=== PATIENT | male | born 1935 | race Caucasian/White ===

== ENCOUNTER → 2017-01-08 | Outpatient (REF) | payer MEDICARE | LOC: M SFHCADAM 08:48 | PROVIDERS: ATTEND Family Medicine | DX: E11.9 Type 2 diabetes mellitus without complications (principal) ==

== ENCOUNTER → 2017-02-22 | Outpatient (REF) | payer MEDICARE ==
[2017-02-22 14:03] LABS: ALBUMIN 3.9 GM/DL (3.2-5.2); ALBUMIN/GLOBULIN RATIO 1.08 (1.00-1.93); ALKALINE PHOSPHATASE 57 U/L (45-117); ALT/SGPT 20 U/L (12-78); ANION GAP 5 MEQ/L (8-16); AST/SGOT 16 U/L (15-37); BILIRUBIN,TOTAL 0.6 MG/DL (0.2-1.0); BLOOD UREA NITROGEN 23 MG/DL (7-18); CALCIUM LEVEL 10.3 MG/DL (8.8-10.2); CARBON DIOXIDE LEVEL 29 MEQ/L (21-32); CHLORIDE LEVEL 106 MEQ/L (98-107); CREATININE FOR GFR 1.06 MG/DL (0.70-1.30); GLOMERULAR FILTRATION RATE > 60.0 (>42); GLUCOSE, FASTING 200 MG/DL (83-110); SODIUM LEVEL 140 MEQ/L (136-145); TOTAL PROTEIN 7.5 GM/DL (6.4-8.2)
== END ==
LOC: M SFHCADAM 09:04
PROVIDERS: ATTEND Family Medicine
DX: E11.9 Type 2 diabetes mellitus without complications (principal); Z51.81 Encounter for therapeutic drug level monitoring; Z79.01 Long term (current) use of anticoagulants

== ENCOUNTER → 2017-04-15 | Outpatient (REF) | payer OTHER | LOC: M SFHCADAM 11:55 | PROVIDERS: ATTEND Family Medicine | DX: E11.9 Type 2 diabetes mellitus without complications (principal) | CPT/HCPCS: 83036; 85610; G0463 ==

== ENCOUNTER → 2017-09-03 | Outpatient (REF) | payer OTHER | LOC: M SFHCADAM 08:29 | PROVIDERS: ATTEND Family Medicine | DX: E11.9 Type 2 diabetes mellitus without complications (principal) | CPT/HCPCS: 82043; G0463 ==

== ENCOUNTER → 2017-12-14 | Outpatient (REF) | payer OTHER ==
[2017-12-14 20:19] LABS: ESTIMATED AVERAGE GLUCOSE 154 MG/DL (60-110)
== END ==
LOC: M SFHCADAM 19:04
DX: E11.9 Type 2 diabetes mellitus without complications (principal)
CPT/HCPCS: 83036

== ENCOUNTER → 2018-03-03 | Outpatient (REF) | payer OTHER ==
[2018-03-03 13:34] LABS: CREATININE, URINE 74.7 MG/DL; MALB URINE SIEMENS 50.8 MG/L
== END ==
LOC: M SFHCADAM 12:14
DX: E11.9 Type 2 diabetes mellitus without complications (principal); Z79.01 Long term (current) use of anticoagulants
CPT/HCPCS: 82043

== ENCOUNTER → 2018-05-25 | Outpatient (REF) | payer OTHER ==
[2018-05-25 12:35] LABS: BASO # 0.1 10^3/uL (0.0-0.2); EOS # 0.1 10^3/uL (0.0-0.50); EOS % 1.7 % (0.0-3.0); HEMATOCRIT 45.3 % (42.0-52.0); HEMOGLOBIN 15.1 g/dl (13.5-17.5); IMMATURE GRANULOCYTE % 1.3 % (0-3.0); LYMPH # 1.9 10^3/uL (1.5-4.5); LYMPH % 25.9 % (24.0-44.0); MEAN CORPUSCULAR HEMOGLOBIN 33.2 pg (27.0-33.0); MEAN CORPUSCULAR HGB CONC 33.3 g/dl (32.0-36.5); MEAN CORPUSCULAR VOLUME 99.6 fl (80.0-96.0); MONO # 0.8 10^3/uL (0.0-0.8); MONO % 11.4 % (0.0-5.0); NEUTROPHILS # 4.2 10^3/uL (1.8-7.7); NEUTROPHILS % 58.7 % (36.0-66.0); PLATELET COUNT, AUTOMATED 264 10^3/uL (150-450); RED BLOOD COUNT 4.55 10^6/uL (4.30-6.10); RED CELL DISTRIBUTION WIDTH 13.9 % (11.5-14.5); WHITE BLOOD COUNT 7.1 10^3/uL (4.0-10.0)
== END ==
LOC: M SFHCADAM 08:54
DX: T14.8XXA Other injury of unspecified body region, initial encounter (principal); X58.XXXA Exposure to other specified factors, initial encounter; Y92.9 Unspecified place or not applicable
CPT/HCPCS: 85025

== ENCOUNTER → 2018-08-12 | Outpatient (REF) | payer OTHER ==
[2018-08-12 14:00] LABS: ESTIMATED AVERAGE GLUCOSE 189 MG/DL (60-110); HEMOGLOBIN A1c 8.2 %
== END ==
LOC: M SFHCADAM 09:27
DX: E11.9 Type 2 diabetes mellitus without complications (principal); Z79.01 Long term (current) use of anticoagulants
CPT/HCPCS: 83036

== ENCOUNTER → 2018-10-19 | Outpatient (CLI) | payer OTHER | LOC: M ADAMS 15:13 | DX: E11.9 Type 2 diabetes mellitus without complications (principal) ==

== ENCOUNTER → 2018-10-19 | Outpatient (REF) | payer OTHER ==
[~2018-10-19] MED LIST: AMLO5TAB4; JANT3TAB; JANT5TAB; JANU100T; LEVE1INJ5; LISI40TAB; METF10004; RANI-280; SIMV20TA2
[2018-10-19 20:45] LABS: MAU/CREAT RATIO 97.4 MCG/MG (0.0-30.0)
== END ==
LOC: M SFHCADAM 19:23
PROVIDERS: ATTEND Family Medicine
DX: E11.9 Type 2 diabetes mellitus without complications (principal); Z79.01 Long term (current) use of anticoagulants
CPT/HCPCS: 82043; 85610; G0463

== ENCOUNTER 2018-11-03 10:35 | Emergency (ER) | payer OTHER ==
[~2018-11-03] VITALS: Ht 182.9 cm; Wt 90.5 kg
[2018-11-03] MEDS ORDERED: LEVE1INJ5 (11:16)
[2018-11-03] MEDS ORDERED: AMLO5TAB4 (11:16)
[2018-11-03] MEDS ORDERED: JANU100T (11:16)
[2018-11-03] MEDS ORDERED: LISI40TAB (11:16)
[2018-11-03] MEDS ORDERED: JANT5TAB (11:16)
[2018-11-03] MEDS ORDERED: RANI-280 (11:16)
[2018-11-03] MEDS ORDERED: JANT3TAB (11:16)
[2018-11-03] MEDS ORDERED: SIMV20TA2 (11:16)
[2018-11-03] MEDS ORDERED: METF10004 (11:16)
--- NOTE | 2018-11-03 11:40 | REP ---
Clinical: Right hip trauma. Pain. Technique: Neutral and frog lateral views of the right hip. Findings: Generalized age-related changes are appreciated including joint space narrowing. No acute fracture or dislocation. Evidence for peripheral vascular disease. Impression: Generalized age-related changes. No acute fracture or dislocation identified. Electronically Signed by Trenton Skelton MD 11/03/2018 11:32 A
--- NOTE | 2018-11-03 11:54 | REP ---
RIGHT RIB SERIES: Five views including PA chest. HISTORY: Trauma. Pain. COMPARISON STUDY: November 13, 2014. FINDINGS: PA chest radiograph shows no evidence of pneumothorax or hydrothorax. The aorta is tortuous. This is more pronounced than it was in 2015 but there is no evidence of traumatic mediastinal widening. Heart is not enlarged. Lung stovall are clear. Multiple views of the right ribcage show intact right ribs without visible fracture or bony destructive lesion. 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 IMPRESSION: Negative right rib series. No fracture seen. Electronically Signed by Agus Brennan MD 11/03/2018 12:49 P
[2018-11-03 11:59] VITALS: BP 137/82
== END 2018-11-03 12:01 | disposition home or self-care (01) ==
LOC: M ED 10:35
DX: S20.211A Contusion of right front wall of thorax, initial encounter (principal); S70.01XA Contusion of right hip, initial encounter; W01.0XXA Fall on same level from slipping, tripping and stumbling without subsequent striking against object, initial encounter; Y92.098 Other place in other non-institutional residence as the place of occurrence of the external cause; I10 Essential (primary) hypertension; E11.9 Type 2 diabetes mellitus without complications; Z79.899 Other long term (current) drug therapy; Z79.01 Long term (current) use of anticoagulants; Z79.4 Long term (current) use of insulin

== ENCOUNTER → 2018-11-16 | Outpatient (REF) | payer OTHER ==
[~2018-11-16] MED LIST changes: -AMLO5TAB4; +AMLO5TAB6; +LISI40TA; -LISI40TAB
[2018-11-16 13:26] LABS: PHOSPHORUS LEVEL 2.8 MG/DL (2.5-4.9)
[2018-11-16 13:39] LABS: PTH INTACT 84.7 PG/ML (18.5-88.0)
== END ==
LOC: M LAB REF 12:38
PROVIDERS: ATTEND Nurse Practitioner Adult Health
DX: E21.3 Hyperparathyroidism, unspecified (principal)

== ENCOUNTER 2020-03-24 13:32 | Emergency (ER) | payer MEDICARE, OTHER ==
[~2020-03-24] VITALS: Ht 182.9 cm; Wt 90.0 kg
[~2020-03-24 13:32] MED LIST changes: -AMLO5TAB6; +AMLO5TAB6 PO; -SIMV20TA2; +SIMV20TA22
[2020-03-24] MEDS ORDERED: BOOSTRIX/ADACEL VACCINE (DIPHTH/PERTUSS/ACELL/TETANUS) 0.5ML SYR IM ONE (14:00)
[2020-03-24 14:41] LABS: INR 2.44; PARTIAL THROMBOPLASTIN TIME 28.7 SECONDS (25.0-38.4); PROTHROMBIN TIME 26.3 SECONDS (11.8-14.0)
[2020-03-24 15:30] VITALS: BP 133/75
--- NOTE | 2020-03-25 02:57 | REP ---
Clinical: Trauma. Technique: AP, lateral, bilateral oblique views of the right and left wrist. Findings: Generalized relatively symmetric age-related osteopenia and arthritic changes are appreciated along with peripheral vascular disease. No acute fracture or dislocation. Impression: Generalized osteopenia and arthritic changes. Peripheral vascular disease. No acute fracture or dislocation appreciated. Electronically Signed by Trenton Skelton MD 03/25/2020 02:48 A
--- NOTE | 2020-03-25 03:02 | REP ---
Clinical: Trauma. Technique: Axial noncontrast images from the skull base to the thoracic inlet with coronal and sagittal re-formations. Comparison: None. Findings:Age-related osteopenia and moderate/early advanced multilevel degenerative changes including mild reversal of normal lordosis, osteophytosis, endplate sclerosis/heterogeneity, disc space narrowing and mild facet arthropathy noted primarily involving C4-5 through C6-7.No acute fracture / compression injury or subluxation. Spinal canal is grossly patent. Posterior elements and spinous processes are intact. Paravertebral soft tissues are normal. Impression:Osteopenia and early advanced multilevel degenerative spondylosis.No acute fracture / compression injury or subluxation. Electronically Signed by Trenton Skelton MD 03/25/2020 02:53 A
--- NOTE | 2020-03-25 03:04 | REP ---
Clinical: Trauma. Comparison: None. Technique: Axial noncontrast images from the skull base to the vertex with coronal re-formations. Findings:Age-related atrophy and microvascular ischemic changes are appreciated. The ventricles and sulci are symmetric. [place]-white differentiation is maintained. There is no evidence for acute intracranial hemorrhage, mass/mass effect, pathology or infarction. No extra-axial fluid collection. Calvarium is intact. Opacification of the left maxillary sinus is nonspecific. Remainder of the sinuses and mastoid air cells are clear. Impression:Age related atrophy and microvascular ischemic changes.No acute intracranial hemorrhage, infarction, or mass/mass effect. No evidence for acute trauma/injury. Electronically Signed by Trenton Skelton MD 03/25/2020 02:55 A
== END 2020-03-24 15:53 | disposition home or self-care (01) ==
LOC: M ED 13:32 → EDBD 13:32 → M ED 15:53
DX: S09.90XA Unspecified injury of head, initial encounter (principal); S60.211A Contusion of right wrist, initial encounter; S60.212A Contusion of left wrist, initial encounter; S60.411A Abrasion of left index finger, initial encounter; S60.413A Abrasion of left middle finger, initial encounter; S60.415A Abrasion of left ring finger, initial encounter; S60.416A Abrasion of right little finger, initial encounter; W01.198A Fall on same level from slipping, tripping and stumbling with subsequent striking against other object, initial encounter; Y92.093 Driveway of other non-institutional residence as the place of occurrence of the external cause; I11.9 Hypertensive heart disease without heart failure; E11.9 Type 2 diabetes mellitus without complications; I48.91 Unspecified atrial fibrillation; I25.10 Atherosclerotic heart disease of native coronary artery without angina pectoris; E78.9 Disorder of lipoprotein metabolism, unspecified; K21.9 Gastro-esophageal reflux disease without esophagitis; E21.3 Hyperparathyroidism, unspecified; Z87.891 Personal history of nicotine dependence; Z79.899 Other long term (current) drug therapy; Z79.01 Long term (current) use of anticoagulants; Z79.4 Long term (current) use of insulin; Z23 Encounter for immunization

== ENCOUNTER → 2020-07-09 | Outpatient (REF) | payer MEDICARE ==
[~2020-07-09] MED LIST changes: +AMLO1TAB24 PO; -AMLO5TAB6 PO
== END ==
LOC: M LAB REF 11:15
PROVIDERS: ATTEND Nurse Practitioner Adult Health
DX: E83.52 Hypercalcemia (principal)

== ENCOUNTER → 2021-02-26 | Outpatient (CLI) | payer MEDICARE ==
[~2021-02-26] MED LIST changes: -LISI40TA; +LISI40TA4
--- NOTE | 2021-02-26 11:07 | REP ---
INDICATION: COUGH. COMPARISON: Frontal view of the chest obtained as part of a rib series 11/03/2018 TECHNIQUE: PA and lateral FINDINGS: The superior mediastinal structures are midline. The cardiac silhouette is unremarkable in size, shape, and position. The diaphragmatic surfaces of the lungs are regular, and the costophrenic angles are clear. There is thoracic aortic tortuosity status quo. The pulmonary stovall are clear. The imaged osseous structures are intact. IMPRESSION: There is no acute cardiopulmonary disease. <Electronically signed by Osmel Mathias > 02/26/21 [id number]
[2021-02-26 18:27] LABS: PTH INTACT 75.1 PG/ML (18.5-88.0)
== END ==
LOC: M ADAMS 10:37
PROVIDERS: ATTEND Nurse Practitioner Adult Health
DX: R05 Cough (principal)

== ENCOUNTER 2021-11-27 09:10 | Emergency (ER) | payer MEDICARE ==
[~2021-11-27] VITALS: Ht 182.9 cm; Wt 86.4 kg
[2021-11-27] MEDS ORDERED: ACETAMINOPHEN 325 MG TAB PO ONE (09:35)
[2021-11-27] MEDS ORDERED: HYDR12.55 PO (11:06)
[2021-11-27] MEDS ORDERED: TERA1CAP3 PO (11:06)
[2021-11-27] MEDS ORDERED: FAMO20TA5 PO (11:06)
[2021-11-27 11:48] LABS: INR 3.7; PARTIAL THROMBOPLASTIN TIME 43.6 SECONDS (25.9-37.0); PROTHROMBIN TIME 36.9 SECONDS (12.7-14.5)
[2021-11-27 12:22] VITALS: BP 139/94
== END 2021-11-27 12:38 | disposition home or self-care (01) ==
LOC: EDBD 09:10 → M ED 09:10
DX: S42.402A Unspecified fracture of lower end of left humerus, initial encounter for closed fracture (principal); W00.0XXA Fall on same level due to ice and snow, initial encounter; Y92.009 Unspecified place in unspecified non-institutional (private) residence as the place of occurrence of the external cause; Y93.9 Activity, unspecified; Y99.9 Unspecified external cause status; I48.91 Unspecified atrial fibrillation; I10 Essential (primary) hypertension; E11.9 Type 2 diabetes mellitus without complications; Z79.4 Long term (current) use of insulin; Z79.01 Long term (current) use of anticoagulants; Z79.899 Other long term (current) drug therapy

== ENCOUNTER → 2021-11-28 | Outpatient (CLI) | payer MEDICARE ==
[~2021-11-28] MED LIST changes: +FAMO20TA5 PO; +HYDR12.55 PO; +TERA1CAP3 PO
== END ==
LOC: M SOG 13:34
PROVIDERS: ATTEND Orthopaedic Surgery
DX: S42.492A Other displaced fracture of lower end of left humerus, initial encounter for closed fracture (principal); M25.552 Pain in left hip

== ENCOUNTER → 2021-12-12 | Outpatient (CLI) | payer MEDICARE | LOC: M SOG 10:04 | PROVIDERS: ATTEND Orthopaedic Surgery | DX: S42.495A Other nondisplaced fracture of lower end of left humerus, initial encounter for closed fracture (principal); M16.12 Unilateral primary osteoarthritis, left hip; W00.0XXA Fall on same level due to ice and snow, initial encounter; Y92.9 Unspecified place or not applicable; M16.0 Bilateral primary osteoarthritis of hip ==

== ENCOUNTER → 2021-12-26 | Outpatient (CLI) | payer MEDICARE | LOC: M SOG 09:24 | PROVIDERS: ATTEND Orthopaedic Surgery | DX: M25.422 Effusion, left elbow (principal) ==

== ENCOUNTER → 2022-01-13 | Outpatient (REF) | payer MEDICARE | LOC: M LAB REF 16:14 | PROVIDERS: ATTEND Nurse Practitioner Adult Health | DX: E83.52 Hypercalcemia (principal) ==

== ENCOUNTER → 2022-08-20 | Outpatient (REF) | payer MEDICARE | LOC: M LAB REF 16:42 | PROVIDERS: ATTEND Nurse Practitioner Adult Health | DX: Z51.81 Encounter for therapeutic drug level monitoring (principal) ==

== ENCOUNTER → 2022-09-09 | Outpatient (CLI) | payer MEDICARE | LOC: M SOG 07:52 | PROVIDERS: ATTEND Orthopaedic Surgery | DX: M16.12 Unilateral primary osteoarthritis, left hip (principal); M54.50 Low back pain, unspecified ==

== ENCOUNTER 2023-10-28 14:32 | Inpatient (IN) | payer MEDICARE ==
[~2023-10-28] VITALS: Ht 182.9 cm; Wt 81.6 kg
[~2023-10-28 14:32] MED LIST changes: +INSU100I6; -JANT3TAB; +JANT3TAB PO; -JANT5TAB; +JANT5TAB PO; -LEVE1INJ5; -LISI40TA4; +LISI40TA4 PO; -METF10004; +METF10004 PO; -SIMV20TA22; +SIMV20TA22 PO
[2023-10-28 16:09] LABS: HEMATOCRIT 50.7 % (42.0-52.0); HEMOGLOBIN 16.4 g/dl (13.5-17.5); MEAN CORPUSCULAR HGB CONC 32.3 g/dl (32.0-36.5); PLATELET COUNT, AUTOMATED 358 10^3/uL (150-450); RED BLOOD COUNT 4.97 10^6/uL (4.30-6.10); WHITE BLOOD COUNT 14.5 10^3/uL (4.0-10.0)
[2023-10-28 16:15] LABS: ERYTHROCYTE SEDIMENTATION RATE 100 mm/hr (0-20)
[2023-10-28 16:20] LABS: INR 2.41; PROTHROMBIN TIME 25.4 SECONDS (12.5-14.5)
[2023-10-28 16:21] LABS: PARTIAL THROMBOPLASTIN TIME 35.3 SECONDS (24.8-34.2)
[2023-10-28 16:25] LABS: BASOPHILS 2 % (0-1); LYMPHOCYTES 11 % (16-44); MONOCYTES 11 % (0-5); NEUTROPHILS 75 % (28-66); PLATELET ESTIMATE NORMAL (NORMAL)
[2023-10-28] MEDS ORDERED: NS 1,000 ML IV ONE (16:35)
[2023-10-28] MEDS ORDERED: VANCOMYCIN HCL 1,750 MG in NS 250 ML IV ONE (17:05)
[2023-10-28] MEDS ORDERED: INSULIN LISPRO (NovoLOG) PER UNIT SC SCH ×2 (17:30→21:00)
[2023-10-28] MEDS ORDERED: SODIUM CHLORIDE 0.9% 1000ML IV STA (17:54)
[2023-10-28] MEDS ORDERED: GLUCOSE 4GM CHEW TABLET PO PRN ×2 (18:00→23:45)
[2023-10-28] MEDS ORDERED: VANCOMYCIN HCL 1,000 MG, VIAL MATE ADAPTER 1 EACH in D5W 250 ML IV ONE (18:00)
[2023-10-28] MEDS ORDERED: DEXTROSE 50% 50ML SYRINGE IV PRN ×2 (18:00→23:45)
[2023-10-28] MEDS ORDERED: GLUCAGON INJ 1MG VIAL SC PRN ×2 (18:00→23:45)
[2023-10-28] MEDS ORDERED: ISOVUE-370 76% 100ML VIAL As Ordered ONE (18:17)
[2023-10-28 18:53] LABS: PROCALCITONIN <0.04 ng/ml
[2023-10-28] MEDS ORDERED: VANCOMYCIN HCL 750 MG, VIAL MATE ADAPTER 1 EACH in D5W 250 ML IV ONE (19:00)
[2023-10-28] MEDS ORDERED: MED REC IN PROGRESS XX SCH (19:05)
[2023-10-28 19:42] LABS: RSV AMPLIFICATION NEGATIVE (NEGATIVE)
[2023-10-28 20:30] VITALS: BP 163/89; TEMP 98.1; O2SAT 95
[2023-10-28 20:57] LABS: C REACTIVE PROTEIN QUANTITATIV 4.9 MG/DL (<1.0)
[2023-10-28] MEDS ORDERED: PIPERACILLIN/TAZOBACTAM SOD 4.5 GM in D5W MINI-BAG PLUS 50 ML IV SCH (22:00)
[2023-10-28] MEDS ORDERED: ONDANSETRON 4MG 2ML VIAL IV PRN (23:45)
[2023-10-28] MEDS ORDERED: HYDROMORPHONE HCL 0.5 MG/ 0.5 ML SYRINGE IV PRN ×2 (23:45)
[2023-10-28] MEDS ORDERED: VANCOMYCIN HCL 1,000 MG, VIAL MATE ADAPTER 1 EACH in NS 250 ML IV SCH (23:45)
[2023-10-29 00:06] LABS: MAGNESIUM LEVEL 1.9 MG/DL (1.8-2.4)
[2023-10-29] MEDS: NS 1,000 ML IV SCH ×2 (00:12→18:23)
[2023-10-29 06:00] VITALS: BP 131/82; TEMP 98.6; O2SAT 90
[2023-10-29 06:39] LABS: INR 2.37
[2023-10-29 06:45] LABS: ALBUMIN 2.6 G/DL (3.2-5.2); ALKALINE PHOSPHATASE 69 U/L (46-116); ALT/SGPT < 9 U/L (7.0-40); AST/SGOT 14 U/L (<34); BILIRUBIN,TOTAL 1.2 MG/DL (0.3-1.2); BLOOD UREA NITROGEN 13 MG/DL (9-23); CALCIUM LEVEL 9.8 MG/DL (8.3-10.6); CARBON DIOXIDE LEVEL 21 MMOL/L (20-31); CREATININE FOR GFR 0.69 MG/DL (0.70-1.30); GLOMERULAR FILTRATION RATE > 60.0 (>35); GLUCOSE, FASTING 124 MG/DL (74-106); MAGNESIUM LEVEL 1.8 MG/DL (1.8-2.4); PHOSPHORUS LEVEL 2.4 MG/DL (2.4-5.1); TOTAL PROTEIN 6.2 G/DL (5.7-8.2)
[2023-10-29] MEDS: INSULIN LISPRO (NovoLOG) PER UNIT SC SCH ×4 (07:30→21:00)
[2023-10-29 08:36] LABS: CHLORIDE LEVEL 105 MMOL/L (98-107); SODIUM LEVEL 138 MMOL/L (136-145)
[2023-10-29] MEDS: VANCOMYCIN HCL 750 MG, VIAL MATE ADAPTER 1 EACH in D5W 250 ML IV SCH ×2 (09:08→10:27)
[2023-10-29] MEDS ORDERED: VANCOMYCIN HCL 500 MG in D5W MINI-BAG PLUS 100 ML IV SCH (10:00)
[2023-10-29] MEDS ORDERED: INSU100I48 SQ (10:10)
[2023-10-29] MEDS ORDERED: FARX1TAB3 PO (10:10)
[2023-10-29] MEDS ORDERED: AMLO1TAB25 PO (10:10)
[2023-10-29] MEDS ORDERED: ATOR1TAB21 PO (10:10)
[2023-10-29] MEDS ORDERED: TRAD5TAB PO (10:10)
[2023-10-29] MEDS ORDERED: METO1TAB32 PO (10:10)
[2023-10-29] MEDS ORDERED: HOME MED LIST COMPLETE! XX SCH (10:15)
[2023-10-29] MEDS: DAPAGLIFLOZIN PROPANEDIOL 10MG TABLET (FARXIGA) PO SCH (13:10)
[2023-10-29] MEDS: METOPROLOL SUCC *XL* 25MG TAB (TopROL *XL*) PO SCH (13:11)
[2023-10-29 14:00] VITALS: BP 127/72; TEMP 98.1; O2SAT 95
[2023-10-29] MEDS: HYDROCHLOROthiazide 6.25MG PER 1/4TAB PO SCH (18:15)
[2023-10-29] MEDS: WARFARIN SOD 3MG TAB PO SCH (18:15)
[2023-10-29 20:15] VITALS: BP 133/80; TEMP 98.6; O2SAT 90
[2023-10-29] MEDS: ATORVASTATIN 20 MG TAB PO SCH (21:00)
[2023-10-29] MEDS: FAMOTIDINE 20 MG TAB PO SCH (21:00)
[2023-10-29] MEDS: TERAZOSIN 1 MG CAP PO SCH ×2 (21:00→22:30)
[2023-10-30 06:10] VITALS: BP 142/88; TEMP 97.9; O2SAT 94
[2023-10-30 06:32] LABS: INR 1.93; PROTHROMBIN TIME 21.4 SECONDS (12.5-14.5)
[2023-10-30 09:00] LABS: BASO # 0.1 10^3/uL (0.0-0.2); BASO % 0.5 % (0.0-1.0); EOS % 0.2 % (0.0-3.0); HEMATOCRIT 44.9 % (42.0-52.0); HEMOGLOBIN 14.8 g/dl (13.5-17.5); MEAN CORPUSCULAR HEMOGLOBIN 33.3 pg (27.0-33.0); MEAN CORPUSCULAR VOLUME 100.9 fl (80.0-96.0); MONO # 1.5 10^3/uL (0.0-0.8); MONO % 11.4 % (2.0-8.0); NEUTROPHILS # 10.3 10^3/uL (1.5-8.5); NEUTROPHILS % 79.2 % (36.0-66.0); PLATELET COUNT, AUTOMATED 335 10^3/uL (150-450); RED BLOOD COUNT 4.45 10^6/uL (4.30-6.10); WHITE BLOOD COUNT 12.9 10^3/uL (4.0-10.0)
[2023-10-30 09:17] LABS: ERYTHROCYTE SEDIMENTATION RATE 67 mm/hr (0-20)
[2023-10-30 09:23] LABS: VANCOMYCIN LEVEL TROUGH 5.9 UG/ML (10.0-20.0)
[2023-10-30 09:24] LABS: BLOOD UREA NITROGEN 17 MG/DL (9-23); CALCIUM LEVEL 9.5 MG/DL (8.3-10.6); CARBON DIOXIDE LEVEL 24 MMOL/L (20-31); CHLORIDE LEVEL 104 MMOL/L (98-107); CREATININE FOR GFR 0.83 MG/DL (0.70-1.30); GLOMERULAR FILTRATION RATE > 60.0 (>35); GLUCOSE, FASTING 347 MG/DL (74-106); MAGNESIUM LEVEL 1.9 MG/DL (1.8-2.4); SODIUM LEVEL 135 MMOL/L (136-145)
[2023-10-30] MEDS: DAPAGLIFLOZIN PROPANEDIOL 10MG TABLET (FARXIGA) PO SCH (09:29)
[2023-10-30] MEDS: METOPROLOL SUCC *XL* 25MG TAB (TopROL *XL*) PO SCH (09:32)
[2023-10-30] MEDS: HYDROCHLOROthiazide 6.25MG PER 1/4TAB PO SCH (09:32)
[2023-10-30] MEDS: INSULIN LISPRO (NovoLOG) PER UNIT SC SCH ×4 (09:33→21:00)
[2023-10-30] MEDS: VANCOMYCIN HCL 750 MG, VIAL MATE ADAPTER 1 EACH in D5W 250 ML IV SCH ×2 (09:56→10:56)
[2023-10-30] MEDS ORDERED: ZYVO1TAB PO (10:14)
[2023-10-30] MEDS ORDERED: VANCOMYCIN HCL 500 MG in D5W MINI-BAG PLUS 100 ML IV ONE (14:00)
[2023-10-30 15:43] VITALS: TEMP 98.1
[2023-10-30] MEDS: cefTRIAXone SOD 2 GM in D5W MINI-BAG PLUS 50 ML IV SCH (17:19)
[2023-10-30] MEDS: WARFARIN SOD 3MG TAB PO SCH (17:19)
[2023-10-30] MEDS: FAMOTIDINE 20 MG TAB PO SCH (22:30)
[2023-10-30] MEDS: ATORVASTATIN 20 MG TAB PO SCH (22:30)
[2023-10-31 05:44] VITALS: BP 139/82; TEMP 97.9; O2SAT 96
[2023-10-31] MEDS: INSULIN LISPRO (NovoLOG) PER UNIT SC SCH ×4 (08:18→21:27)
[2023-10-31] MEDS: DAPAGLIFLOZIN PROPANEDIOL 10MG TABLET (FARXIGA) PO SCH (08:19)
[2023-10-31] MEDS: HYDROCHLOROthiazide 6.25MG PER 1/4TAB PO SCH (08:23)
[2023-10-31] MEDS: METOPROLOL SUCC *XL* 25MG TAB (TopROL *XL*) PO SCH (08:25)
[2023-10-31 08:53] LABS: BASO # 0.1 10^3/uL (0.0-0.2); BASO % 0.9 % (0.0-1.0); EOS # 0.1 10^3/uL (0.0-0.5); EOS % 0.5 % (0.0-3.0); HEMATOCRIT 47.2 % (42.0-52.0); HEMOGLOBIN 15.6 g/dl (13.5-17.5); LYMPH # 1.5 10^3/uL (1.5-5.0); LYMPH % 12.2 % (24.0-44.0); MEAN CORPUSCULAR HEMOGLOBIN 33.1 pg (27.0-33.0); MEAN CORPUSCULAR HGB CONC 33.1 g/dl (32.0-36.5); MEAN CORPUSCULAR VOLUME 100.2 fl (80.0-96.0); MONO # 1.5 10^3/uL (0.0-0.8); MONO % 12.5 % (2.0-8.0); NEUTROPHILS # 8.7 10^3/uL (1.5-8.5); NEUTROPHILS % 73.1 % (36.0-66.0); PLATELET COUNT, AUTOMATED 315 10^3/uL (150-450); RED BLOOD COUNT 4.71 10^6/uL (4.30-6.10); WHITE BLOOD COUNT 11.9 10^3/uL (4.0-10.0)
[2023-10-31 08:56] LABS: VANCOMYCIN LEVEL TROUGH 8.3 UG/ML (10.0-20.0)
[2023-10-31 08:57] LABS: BLOOD UREA NITROGEN 16 MG/DL (9-23); CALCIUM LEVEL 10.2 MG/DL (8.3-10.6); CARBON DIOXIDE LEVEL 21 MMOL/L (20-31); CHLORIDE LEVEL 106 MMOL/L (98-107); CREATININE FOR GFR 0.76 MG/DL (0.70-1.30); GLOMERULAR FILTRATION RATE > 60.0 (>35); GLUCOSE, FASTING 243 MG/DL (74-106); POTASSIUM SERUM 4.1 MMOL/L (3.5-5.1); SODIUM LEVEL 138 MMOL/L (136-145)
[2023-10-31 09:12] LABS: INR 1.94; PROTHROMBIN TIME 21.5 SECONDS (12.5-14.5)
[2023-10-31] MEDS: VANCOMYCIN HCL 750 MG, VIAL MATE ADAPTER 1 EACH in D5W 250 ML IV SCH (10:03)
[2023-10-31] MEDS: cefTRIAXone SOD 2 GM in D5W MINI-BAG PLUS 50 ML IV SCH (16:19)
[2023-10-31] MEDS: WARFARIN SOD 3MG TAB PO SCH (17:06)
[2023-10-31] MEDS: TERAZOSIN 1 MG CAP PO SCH (20:15)
[2023-10-31] MEDS: ATORVASTATIN 20 MG TAB PO SCH (20:15)
[2023-10-31] MEDS: VANCOMYCIN HCL 1,000 MG, VIAL MATE ADAPTER 1 EACH in D5W 250 ML IV SCH (20:15)
[2023-10-31] MEDS: FAMOTIDINE 20 MG TAB PO SCH (20:15)
[2023-10-31 21:00] VITALS: BP 125/86; TEMP 98.8; O2SAT 97
[2023-11-01 05:38] VITALS: BP 124/86; TEMP 97.9; O2SAT 98
[2023-11-01 07:36] LABS: BASO # 0.1 10^3/uL (0.0-0.2); BASO % 1.1 % (0.0-1.0); EOS # 0.1 10^3/uL (0.0-0.5); EOS % 0.5 % (0.0-3.0); HEMOGLOBIN 15.2 g/dl (13.5-17.5); LYMPH # 1.3 10^3/uL (1.5-5.0); LYMPH % 11.3 % (24.0-44.0); MEAN CORPUSCULAR HEMOGLOBIN 32.9 pg (27.0-33.0); MEAN CORPUSCULAR VOLUME 99.6 fl (80.0-96.0); MONO # 1.4 10^3/uL (0.0-0.8); MONO % 12.8 % (2.0-8.0); NEUTROPHILS # 8.1 10^3/uL (1.5-8.5); NEUTROPHILS % 73.6 % (36.0-66.0); PLATELET COUNT, AUTOMATED 357 10^3/uL (150-450); RED BLOOD COUNT 4.62 10^6/uL (4.30-6.10)
[2023-11-01 07:46] LABS: INR 2.17; PROTHROMBIN TIME 23.4 SECONDS (12.5-14.5)
[2023-11-01 07:59] LABS: BLOOD UREA NITROGEN 14 MG/DL (9-23); CARBON DIOXIDE LEVEL 26 MMOL/L (20-31); CHLORIDE LEVEL 104 MMOL/L (98-107); CREATININE FOR GFR 0.78 MG/DL (0.70-1.30); GLOMERULAR FILTRATION RATE > 60.0 (>35); GLUCOSE, FASTING 181 MG/DL (74-106); SODIUM LEVEL 137 MMOL/L (136-145)
[2023-11-01] MEDS: DAPAGLIFLOZIN PROPANEDIOL 10MG TABLET (FARXIGA) PO SCH (08:13)
[2023-11-01] MEDS: VANCOMYCIN HCL 1,000 MG, VIAL MATE ADAPTER 1 EACH in D5W 250 ML IV SCH ×2 (08:13→20:30)
[2023-11-01] MEDS: INSULIN LISPRO (NovoLOG) PER UNIT SC SCH ×4 (08:13→20:19)
[2023-11-01] MEDS: METOPROLOL SUCC *XL* 25MG TAB (TopROL *XL*) PO SCH (08:14)
[2023-11-01] MEDS: HYDROCHLOROthiazide 6.25MG PER 1/4TAB PO SCH (08:14)
[2023-11-01] MEDS: cefTRIAXone SOD 2 GM in D5W MINI-BAG PLUS 50 ML IV SCH (16:28)
[2023-11-01] MEDS: WARFARIN SOD 3MG TAB PO SCH (17:54)
[2023-11-01] MEDS: FAMOTIDINE 20 MG TAB PO SCH (20:28)
[2023-11-01] MEDS: ATORVASTATIN 20 MG TAB PO SCH (20:29)
[2023-11-01] MEDS: TERAZOSIN 1 MG CAP PO SCH (20:30)
[2023-11-02 06:00] VITALS: BP 137/71; TEMP 97.6; O2SAT 91
[2023-11-02 07:58] LABS: BASO # 0.1 10^3/uL (0.0-0.2); BASO % 1.1 % (0.0-1.0); EOS # 0.1 10^3/uL (0.0-0.5); EOS % 0.8 % (0.0-3.0); HEMATOCRIT 45.2 % (42.0-52.0); HEMOGLOBIN 14.9 g/dl (13.5-17.5); LYMPH # 1.5 10^3/uL (1.5-5.0); LYMPH % 14.9 % (24.0-44.0); MONO # 1.4 10^3/uL (0.0-0.8); MONO % 13.3 % (2.0-8.0); NEUTROPHILS % 69.1 % (36.0-66.0); PLATELET COUNT, AUTOMATED 346 10^3/uL (150-450); RED BLOOD COUNT 4.52 10^6/uL (4.30-6.10); WHITE BLOOD COUNT 10.2 10^3/uL (4.0-10.0)
[2023-11-02 08:03] LABS: BLOOD UREA NITROGEN 14 MG/DL (9-23); CALCIUM LEVEL 9.8 MG/DL (8.3-10.6); CARBON DIOXIDE LEVEL 21 MMOL/L (20-31); CHLORIDE LEVEL 106 MMOL/L (98-107); CREATININE FOR GFR 0.74 MG/DL (0.70-1.30); GLOMERULAR FILTRATION RATE > 60.0 (>35); GLUCOSE, FASTING 191 MG/DL (74-106); SODIUM LEVEL 136 MMOL/L (136-145)
[2023-11-02 08:23] LABS: INR 2.04; PROTHROMBIN TIME 22.3 SECONDS (12.5-14.5)
[2023-11-02] MEDS: DAPAGLIFLOZIN PROPANEDIOL 10MG TABLET (FARXIGA) PO SCH (08:57)
[2023-11-02 08:58] VITALS: BP 152/87
[2023-11-02] MEDS: HYDROCHLOROthiazide 6.25MG PER 1/4TAB PO SCH (08:58)
[2023-11-02] MEDS: INSULIN LISPRO (NovoLOG) PER UNIT SC SCH ×2 (08:58→13:26)
[2023-11-02] MEDS: METOPROLOL SUCC *XL* 25MG TAB (TopROL *XL*) PO SCH (08:59)
[2023-11-02] MEDS ORDERED: VANCOMYCIN HCL 750 MG, VIAL MATE ADAPTER 1 EACH in D5W 250 ML IV SCH (09:00)
[2023-11-02] MEDS ORDERED: VANCOMYCIN HCL 500 MG in D5W MINI-BAG PLUS 100 ML IV SCH (10:00)
[2023-11-02] MEDS ORDERED: CEFD1CAP9 PO (12:58)
[2023-11-02] MEDS ORDERED: DOXY-444 PO (12:58)
[2023-11-03] MEDS ORDERED: WARFARIN SOD 5MG TAB PO SCH (17:00)
== END 2023-11-02 13:47 | disposition home health service (06) | DRG 872 ==
LOC: M ED 14:32 → UNDOADMIN 17:54 → M ED INP 17:54 → ENRESERV 20:04 → M MSPAV 20:32
PROVIDERS: ADMIT Internal Medicine; ATTEND Student in an Organized Health Care Education/Training Program
DX: A41.9 Sepsis, unspecified organism (principal); L03.116 Cellulitis of left lower limb; L97.528 Non-pressure chronic ulcer of other part of left foot with other specified severity; S92.425A Nondisplaced fracture of distal phalanx of left great toe, initial encounter for closed fracture; I48.91 Unspecified atrial fibrillation; I10 Essential (primary) hypertension; E11.51 Type 2 diabetes mellitus with diabetic peripheral angiopathy without gangrene; E78.5 Hyperlipidemia, unspecified; E11.42 Type 2 diabetes mellitus with diabetic polyneuropathy; B96.20 Unspecified Escherichia coli [E. coli] as the cause of diseases classified elsewhere; E11.621 Type 2 diabetes mellitus with foot ulcer; B95.61 Methicillin susceptible Staphylococcus aureus infection as the cause of diseases classified elsewhere; Z79.4 Long term (current) use of insulin; Z79.01 Long term (current) use of anticoagulants; Z79.899 Other long term (current) drug therapy; X58.XXXA Exposure to other specified factors, initial encounter; Y92.9 Unspecified place or not applicable; Y93.9 Activity, unspecified; Y99.8 Other external cause status

== ENCOUNTER 2023-11-09 17:48 | Inpatient (IN) | payer MEDICARE ==
[~2023-11-09] VITALS: Ht 182.9 cm; Wt 82.0 kg
[~2023-11-09 17:48] MED LIST changes: +AMLO1TAB25 PO; +ATOR1TAB21 PO; +CEFD1CAP9 PO; +DOXY-444 PO; +FARX1TAB3 PO; +INSU100I48 SQ; +METO1TAB32 PO; +TRAD5TAB PO; +ZYVO1TAB PO
[2023-11-09 19:04] LABS: BASO # 0.1 10^3/uL (0.0-0.2); BASO % 0.7 % (0.0-1.0); HEMOGLOBIN 14.5 g/dl (13.5-17.5); LYMPH # 0.8 10^3/uL (1.5-5.0); LYMPH % 10.8 % (24.0-44.0); MEAN CORPUSCULAR HEMOGLOBIN 32.9 pg (27.0-33.0); MEAN CORPUSCULAR VOLUME 99.8 fl (80.0-96.0); MONO % 27.2 % (2.0-8.0); NEUTROPHILS # 4.2 10^3/uL (1.5-8.5); NEUTROPHILS % 58.4 % (36.0-66.0); PLATELET COUNT, AUTOMATED 352 10^3/uL (150-450); RED BLOOD COUNT 4.41 10^6/uL (4.30-6.10); WHITE BLOOD COUNT 7.1 10^3/uL (4.0-10.0)
[2023-11-09 19:28] LABS: ALBUMIN 2.7 G/DL (3.2-5.2); ALKALINE PHOSPHATASE 78 U/L (46-116); ALT/SGPT 12 U/L (7.0-40); AST/SGOT 27 U/L (<34); BILIRUBIN,DIRECT 0.2 MG/DL (<0.4); BILIRUBIN,TOTAL 0.4 MG/DL (0.3-1.2); BLOOD UREA NITROGEN 28 MG/DL (9-23); CARBON DIOXIDE LEVEL 24 MMOL/L (20-31); CHLORIDE LEVEL 104 MMOL/L (98-107); CREATININE FOR GFR 0.92 MG/DL (0.70-1.30); GLOMERULAR FILTRATION RATE > 60.0 (>35); GLUCOSE, FASTING 210 MG/DL (74-106); POTASSIUM SERUM 4.4 MMOL/L (3.5-5.1); SODIUM LEVEL 134 MMOL/L (136-145); TOTAL PROTEIN 6.5 G/DL (5.7-8.2)
[2023-11-09 19:40] LABS: INR 2.21; PROCALCITONIN 0.09 ng/ml; PROTHROMBIN TIME 23.7 SECONDS (12.5-14.5)
[2023-11-09 19:50] LABS: RSV AMPLIFICATION NEGATIVE (NEGATIVE)
[2023-11-09 19:58] LABS: MONO # 1.9 10^3/uL (0.0-0.8)
[2023-11-09 20:19] LABS: VENOUS BASE EXCESS 1.8 (-2.0-2.0); VENOUS HCO3 27.3 MMOL/L (23.0-27.0); VENOUS O2 SATURATION 53.8 % (60.0-80.0); VENOUS PARTIAL PRESSURE CO2 45.8 mmHg (38.0-50.0); VENOUS PARTIAL PRESSURE O2 28.4 mmHg (30.0-50.0); VENOUS PH 7.393 UNITS (7.330-7.430); VENOUS STANDARD HCO3 24.8 MMOL/L; VENOUS TOTAL CO2 28.7 MMOL/L (24.0-28.0)
[2023-11-09] MEDS ORDERED: dexAMETHasone 20MG/5ML VIAL IV ONE (21:30)
[2023-11-09] MEDS ORDERED: CEFD1CAP9 PO (23:11)
[2023-11-09] MEDS ORDERED: DOXY-443 PO (23:12)
[2023-11-09] MEDS ORDERED: HOME MED LIST COMPLETE! XX SCH ×2 (23:25→23:30)
[2023-11-10] VITALS (14 sets, daily range): BP systolic 120–151; BP diastolic 70–100; TEMP 96.8–98.3; O2SAT 88–96
[2023-11-10] MEDS ORDERED: GLUCAGON INJ 1MG VIAL SC PRN (01:05)
[2023-11-10] MEDS ORDERED: GLUCOSE 4GM CHEW TABLET PO PRN (01:05)
[2023-11-10] MEDS ORDERED: DEXTROSE 50% 50ML SYRINGE IV PRN (01:05)
[2023-11-10] MEDS ORDERED: REMDESIVIR 200 MG in NS 250 ML IV ONE (03:00)
[2023-11-10 06:29] LABS: BASO # 0.1 10^3/uL (0.0-0.2); HEMATOCRIT 45.7 % (42.0-52.0); HEMOGLOBIN 15.2 g/dl (13.5-17.5); LYMPH # 0.7 10^3/uL (1.5-5.0); LYMPH % 13.3 % (24.0-44.0); MEAN CORPUSCULAR HEMOGLOBIN 33.6 pg (27.0-33.0); MEAN CORPUSCULAR HGB CONC 33.3 g/dl (32.0-36.5); MEAN CORPUSCULAR VOLUME 101.1 fl (80.0-96.0); MONO # 0.2 10^3/uL (0.0-0.8); MONO % 3.6 % (2.0-8.0); NEUTROPHILS # 3.9 10^3/uL (1.5-8.5); NEUTROPHILS % 77.5 % (36.0-66.0); PLATELET COUNT, AUTOMATED 329 10^3/uL (150-450); RED BLOOD COUNT 4.52 10^6/uL (4.30-6.10)
[2023-11-10 06:43] LABS: INR 1.9; PROTHROMBIN TIME 21.1 SECONDS (12.5-14.5)
[2023-11-10 06:57] LABS: ALBUMIN 2.5 G/DL (3.2-5.2); ALKALINE PHOSPHATASE 76 U/L (46-116); ALT/SGPT 11 U/L (7.0-40); AST/SGOT 25 U/L (<34); BILIRUBIN,DIRECT 0.2 MG/DL (<0.4); BILIRUBIN,TOTAL 0.5 MG/DL (0.3-1.2); BLOOD UREA NITROGEN 23 MG/DL (9-23); CALCIUM LEVEL 9.3 MG/DL (8.3-10.6); CARBON DIOXIDE LEVEL 23 MMOL/L (20-31); CHLORIDE LEVEL 104 MMOL/L (98-107); GLOMERULAR FILTRATION RATE > 60.0 (>35); GLUCOSE, FASTING 193 MG/DL (74-106); POTASSIUM SERUM 4.5 MMOL/L (3.5-5.1); SODIUM LEVEL 136 MMOL/L (136-145); TOTAL PROTEIN 6.4 G/DL (5.7-8.2)
[2023-11-10] MEDS: METOPROLOL SUCC *XL* 25MG TAB (TopROL *XL*) PO SCH (08:55)
[2023-11-10] MEDS: HYDROCHLOROthiazide 6.25MG PER 1/4TAB PO SCH (08:55)
[2023-11-10] MEDS: INSULIN LISPRO (NovoLOG) PER UNIT SC SCH ×4 (08:56→20:39)
[2023-11-10] MEDS ORDERED: WARFARIN SOD 5MG TAB PO SCH (17:00)
[2023-11-10] MEDS ORDERED: CALCIUM CARBONATE 500 MG CHEW U/D PO ONE (17:55)
[2023-11-10] MEDS: ATORVASTATIN 20 MG TAB PO SCH (20:38)
[2023-11-10] MEDS: TERAZOSIN 1 MG CAP PO SCH (20:39)
[2023-11-10] MEDS: FAMOTIDINE 20 MG TAB PO SCH (20:39)
[2023-11-10] MEDS: LEVEMIR (INSULIN DETEMIR) 1 UNITS/0.01ML SC SCH (20:40)
[2023-11-10] MEDS ORDERED: PROHANCE 279.3MG/ML 15ML VIAL As Ordered ONE (22:08)
[2023-11-10] MEDS ORDERED: PROHANCE 279.3MG/ML 5ML VIAL As Ordered ONE (22:08)
[2023-11-11] VITALS (9 sets, daily range): BP systolic 107–151; BP diastolic 69–98; TEMP 96.6–98.7; O2SAT 92–97
[2023-11-11] MEDS ORDERED: REMDESIVIR 100 MG in NS 250 ML IV SCH (05:00)
[2023-11-11 06:12] LABS: HEMATOCRIT 47.4 % (42.0-52.0); HEMOGLOBIN 15.8 g/dl (13.5-17.5); MEAN CORPUSCULAR HEMOGLOBIN 33.5 pg (27.0-33.0); MEAN CORPUSCULAR HGB CONC 33.3 g/dl (32.0-36.5); MEAN CORPUSCULAR VOLUME 100.6 fl (80.0-96.0); PLATELET COUNT, AUTOMATED 350 10^3/uL (150-450); RED BLOOD COUNT 4.71 10^6/uL (4.30-6.10)
[2023-11-11 06:30] LABS: INR 2.02; PROTHROMBIN TIME 22.2 SECONDS (12.5-14.5)
[2023-11-11 06:48] LABS: BLOOD UREA NITROGEN 26 MG/DL (9-23); CALCIUM LEVEL 9.7 MG/DL (8.3-10.6); CARBON DIOXIDE LEVEL 28 MMOL/L (20-31); CHLORIDE LEVEL 104 MMOL/L (98-107); CREATININE FOR GFR 0.72 MG/DL (0.70-1.30); GLOMERULAR FILTRATION RATE > 60.0 (>35); GLUCOSE, FASTING 168 MG/DL (74-106); POTASSIUM SERUM 4.3 MMOL/L (3.5-5.1); SODIUM LEVEL 137 MMOL/L (136-145)
[2023-11-11 08:11] LABS: PROCALCITONIN 0.08 ng/ml
[2023-11-11 08:26] LABS: ERYTHROCYTE SEDIMENTATION RATE 58 mm/hr (0-20)
[2023-11-11] MEDS: INSULIN LISPRO (NovoLOG) PER UNIT SC SCH ×4 (08:36→20:39)
[2023-11-11] MEDS: LEVEMIR (INSULIN DETEMIR) 1 UNITS/0.01ML SC SCH ×2 (08:36→20:38)
[2023-11-11] MEDS: METOPROLOL SUCC *XL* 25MG TAB (TopROL *XL*) PO SCH (08:37)
[2023-11-11] MEDS: DAPAGLIFLOZIN PROPANEDIOL 10MG TABLET (FARXIGA) PO SCH (08:37)
[2023-11-11] MEDS: HYDROCHLOROthiazide 6.25MG PER 1/4TAB PO SCH (10:39)
[2023-11-11] MEDS ORDERED: WARFARIN SOD 3MG TAB PO SCH (17:00)
[2023-11-11] MEDS: FAMOTIDINE 20 MG TAB PO SCH (20:38)
[2023-11-11] MEDS: ATORVASTATIN 20 MG TAB PO SCH (20:38)
[2023-11-11] MEDS: TERAZOSIN 1 MG CAP PO SCH (20:39)
[2023-11-12] MEDS ORDERED: ACETAMINOPHEN TAB 650MG DOSE (2X325MG) PO PRN (00:45)
[2023-11-12 05:50] VITALS: BP 117/86; TEMP 97.7; O2SAT 94
[2023-11-12 06:37] LABS: HEMATOCRIT 46.1 % (42.0-52.0); HEMOGLOBIN 15.2 g/dl (13.5-17.5); MEAN CORPUSCULAR HEMOGLOBIN 33.1 pg (27.0-33.0); MEAN CORPUSCULAR VOLUME 100.4 fl (80.0-96.0); PLATELET COUNT, AUTOMATED 328 10^3/uL (150-450); RED BLOOD COUNT 4.59 10^6/uL (4.30-6.10); WHITE BLOOD COUNT 6.5 10^3/uL (4.0-10.0)
[2023-11-12] MEDS: INSULIN LISPRO (NovoLOG) PER UNIT SC SCH ×2 (07:17→12:32)
[2023-11-12] MEDS: LEVEMIR (INSULIN DETEMIR) 1 UNITS/0.01ML SC SCH (09:00)
[2023-11-12 09:21] VITALS: BP 121/72
[2023-11-12] MEDS: METOPROLOL SUCC *XL* 25MG TAB (TopROL *XL*) PO SCH (09:22)
[2023-11-12 09:23] VITALS: BP 121/72
[2023-11-12] MEDS: HYDROCHLOROthiazide 6.25MG PER 1/4TAB PO SCH (09:23)
[2023-11-12] MEDS: DAPAGLIFLOZIN PROPANEDIOL 10MG TABLET (FARXIGA) PO SCH (09:23)
== END 2023-11-12 13:15 | disposition home health service (06) | DRG 637 ==
LOC: M ED 17:48 → M ED INP 22:40 → M PCU 11-10 01:56 → M MS5PR 11-11 21:45
PROVIDERS: ADMIT Family Medicine; ATTEND Student in an Organized Health Care Education/Training Program
PROC: XW033E5 Introduction of Remdesivir Anti-infective into Peripheral Vein, Percutaneous Approach, New Technology Group 5 (ICD-10-PCS; principal; 2023-11-09)
PROC: 3E0333Z Introduction of Anti-inflammatory into Peripheral Vein, Percutaneous Approach (ICD-10-PCS; 2023-11-09)
DX: E11.621 Type 2 diabetes mellitus with foot ulcer (principal); U07.1 COVID-19; J96.01 Acute respiratory failure with hypoxia; L97.528 Non-pressure chronic ulcer of other part of left foot with other specified severity; I96 Gangrene, not elsewhere classified; E11.52 Type 2 diabetes mellitus with diabetic peripheral angiopathy with gangrene; E11.40 Type 2 diabetes mellitus with diabetic neuropathy, unspecified; I48.91 Unspecified atrial fibrillation; I10 Essential (primary) hypertension; E78.5 Hyperlipidemia, unspecified; Z79.01 Long term (current) use of anticoagulants; Z79.4 Long term (current) use of insulin; Z79.899 Other long term (current) drug therapy

== ENCOUNTER 2023-12-02 05:19 | Inpatient (IN) | payer MEDICARE ==
[~2023-12-02] VITALS: Ht 182.9 cm; Wt 77.4 kg
[~2023-12-02 05:19] MED LIST changes: +DOXY-443 PO
[2023-12-02 06:23] LABS: BASO % 0.2 % (0.0-1.0); EOS % 0.1 % (0.0-3.0); HEMATOCRIT 39.3 % (42.0-52.0); LYMPH # 0.8 10^3/uL (1.5-5.0); LYMPH % 5.5 % (24.0-44.0); MEAN CORPUSCULAR HEMOGLOBIN 32.5 pg (27.0-33.0); MEAN CORPUSCULAR HGB CONC 33.1 g/dl (32.0-36.5); MEAN CORPUSCULAR VOLUME 98.3 fl (80.0-96.0); MONO # 1.6 10^3/uL (0.0-0.8); MONO % 10.4 % (2.0-8.0); NEUTROPHILS # 12.8 10^3/uL (1.5-8.5); PLATELET COUNT, AUTOMATED 345 10^3/uL (150-450); WHITE BLOOD COUNT 15.4 10^3/uL (4.0-10.0)
[2023-12-02 06:36] LABS: PARTIAL THROMBOPLASTIN TIME 54.1 SECONDS (24.8-34.2)
[2023-12-02 06:45] LABS: PROTHROMBIN TIME 49.2 SECONDS (12.5-14.5)
[2023-12-02 06:47] LABS: INR 5.7
[2023-12-02 06:52] LABS: BLOOD UREA NITROGEN 21 MG/DL (9-23); CALCIUM LEVEL 9.8 MG/DL (8.3-10.6); CARBON DIOXIDE LEVEL 24 MMOL/L (20-31); CHLORIDE LEVEL 103 MMOL/L (98-107); CREATININE FOR GFR 0.76 MG/DL (0.70-1.30); GLOMERULAR FILTRATION RATE > 60.0 (>35); GLUCOSE, FASTING 158 MG/DL (74-106); POTASSIUM SERUM 4.1 MMOL/L (3.5-5.1); SODIUM LEVEL 132 MMOL/L (136-145)
[2023-12-02] MEDS ORDERED: PIPERACILLIN/TAZOBACTAM SOD 4.5 GM in D5W MINI-BAG PLUS 50 ML IV ONE (06:55)
[2023-12-02] MEDS ORDERED: PHYTONADIONE 5 MG TAB PO ONE (07:15)
[2023-12-02] MEDS ORDERED: ISOVUE-370 76% 100ML VIAL As Ordered ONE (07:15)
[2023-12-02] MEDS ORDERED: TERAZOSIN 1 MG CAP PO SCH (09:00)
[2023-12-02] MEDS: DAPAGLIFLOZIN PROPANEDIOL 10MG TABLET (FARXIGA) PO SCH ×2 (09:00→14:51)
[2023-12-02] MEDS ORDERED: HYDROCHLOROthiazide 6.25MG PER 1/4TAB PO SCH (09:00)
[2023-12-02] MEDS ORDERED: MED REC IN PROGRESS XX SCH ×2 (10:10)
[2023-12-02] MEDS ORDERED: TERA1CAP3 PO (10:41)
[2023-12-02] MEDS ORDERED: ONETAB9 PO (10:41)
[2023-12-02] MEDS ORDERED: ACET325C5 PO (10:41)
[2023-12-02] MEDS ORDERED: ACET32TAB PO (10:44)
[2023-12-02] MEDS ORDERED: CEPH500C PO (10:51)
[2023-12-02] MEDS ORDERED: HOME MED LIST COMPLETE! XX SCH (10:55)
[2023-12-02] MEDS ORDERED: EZET10TA21 PO (10:56)
[2023-12-02] MEDS ORDERED: ACETAMINOPHEN 500 MG TAB PO ONE (13:15)
[2023-12-02] MEDS: METOPROLOL TART 25 MG TABLET PO ONE ×2 (13:32→13:33)
[2023-12-02 14:00] VITALS: BP 115/74; TEMP 97.5; O2SAT 91
[2023-12-02] MEDS ORDERED: GLUCOSE 4GM CHEW TABLET PO PRN (14:45)
[2023-12-02] MEDS ORDERED: DEXTROSE 50% 50ML SYRINGE IV PRN (14:45)
[2023-12-02] MEDS ORDERED: GLUCAGON INJ 1MG VIAL SC PRN (14:45)
[2023-12-02] MEDS: PIPERACILLIN/TAZOBACTAM SOD 3.375 GM in D5W MINI-BAG PLUS 50 ML IV SCH ×2 (14:50→20:05)
[2023-12-02] MEDS: EZETIMIBE 10MG TABLET (ZETIA) PO SCH (14:51)
[2023-12-02] MEDS ORDERED: VANCOMYCIN HCL 1,000 MG, VIAL MATE ADAPTER 1 EACH in D5W 250 ML IV ONE (16:00)
[2023-12-02] MEDS: INSULIN LISPRO (NovoLOG) PER UNIT SC SCH ×2 (17:25→20:08)
[2023-12-02 20:00] VITALS: BP 113/75; TEMP 97.5; O2SAT 95
[2023-12-02] MEDS: METOPROLOL TART 25 MG TABLET PO SCH ×2 (20:00→22:44)
[2023-12-02] MEDS: ATORVASTATIN 20 MG TAB PO SCH (20:06)
[2023-12-02] MEDS: FAMOTIDINE 20 MG TAB PO SCH (20:06)
[2023-12-02] MEDS ORDERED: ATORVASTATIN 20 MG TAB PO SCH (21:00)
[2023-12-02] MEDS: VANCOMYCIN HCL 1,000 MG, VIAL MATE ADAPTER 1 EACH in D5W 250 ML IV SCH (21:55)
[2023-12-02] MEDS: ACETAMINOPHEN TAB 650MG DOSE (2X325MG) PO PRN (21:56)
[2023-12-03] VITALS (8 sets, daily range): BP systolic 121–152; BP diastolic 65–99; TEMP 97.5–97.9; O2SAT 93–96
[2023-12-03] MEDS: METOPROLOL TART 25 MG TABLET PO SCH ×4 (02:00→23:35)
[2023-12-03] MEDS: PIPERACILLIN/TAZOBACTAM SOD 3.375 GM in D5W MINI-BAG PLUS 50 ML IV SCH ×3 (02:21→15:13)
[2023-12-03 06:46] LABS: INR 3.4; PROTHROMBIN TIME 33.1 SECONDS (12.5-14.5)
[2023-12-03 06:47] LABS: BASO # 0.1 10^3/uL (0.0-0.2); BASO % 0.3 % (0.0-1.0); EOS # 0.1 10^3/uL (0.0-0.5); EOS % 0.6 % (0.0-3.0); HEMATOCRIT 36.8 % (42.0-52.0); HEMOGLOBIN 12.1 g/dl (13.5-17.5); LYMPH % 6.5 % (24.0-44.0); MEAN CORPUSCULAR HEMOGLOBIN 32.5 pg (27.0-33.0); MEAN CORPUSCULAR HGB CONC 32.9 g/dl (32.0-36.5); MEAN CORPUSCULAR VOLUME 98.9 fl (80.0-96.0); MONO # 1.8 10^3/uL (0.0-0.8); MONO % 12.2 % (2.0-8.0); NEUTROPHILS # 11.7 10^3/uL (1.5-8.5); NEUTROPHILS % 79.4 % (36.0-66.0); PLATELET COUNT, AUTOMATED 435 10^3/uL (150-450); RED BLOOD COUNT 3.72 10^6/uL (4.30-6.10); WHITE BLOOD COUNT 14.7 10^3/uL (4.0-10.0)
[2023-12-03 07:07] LABS: BLOOD UREA NITROGEN 17 MG/DL (9-23); CALCIUM LEVEL 8.8 MG/DL (8.3-10.6); CARBON DIOXIDE LEVEL 28 MMOL/L (20-31); CHLORIDE LEVEL 104 MMOL/L (98-107); CREATININE FOR GFR 0.84 MG/DL (0.70-1.30); GLOMERULAR FILTRATION RATE > 60.0 (>35); GLUCOSE, FASTING 173 MG/DL (74-106); HEMOGLOBIN A1c 7.5 % (4.0-6.0); SODIUM LEVEL 133 MMOL/L (136-145)
[2023-12-03 07:09] LABS: ALBUMIN 1.8 G/DL (3.2-5.2); ALKALINE PHOSPHATASE 81 U/L (46-116); ALT/SGPT < 9 U/L (7.0-40); AST/SGOT 15 U/L (<34); BILIRUBIN,DIRECT 0.4 MG/DL (<0.4); BILIRUBIN,TOTAL 0.7 MG/DL (0.3-1.2); CHOLESTEROL LEVEL 82 MG/DL (<200); CHOLESTEROL RISK RATIO 3.03 (<5); LDL CHOLESTEROL 42.4 MG/DL (<100); TOTAL PROTEIN 5.8 G/DL (5.7-8.2); TRIGLYCERIDES LEVEL 63 MG/DL (<150)
[2023-12-03] MEDS ORDERED: DIGOXIN INJ 0.5 MG/2 ML AMP IV STA (07:45)
[2023-12-03] MEDS ORDERED: NS 1,000 ML IV ONE (07:45)
[2023-12-03] MEDS: INSULIN LISPRO (NovoLOG) PER UNIT SC SCH ×4 (07:58→20:20)
[2023-12-03] MEDS ORDERED: METOPROLOL TART 50 MG TAB PO ONE (08:00)
[2023-12-03] MEDS ORDERED: METOPROLOL SUCC *XL* 25MG TAB (TopROL *XL*) PO SCH (09:00)
[2023-12-03] MEDS ORDERED: LEVEMIR (INSULIN DETEMIR) 1 UNITS/0.01ML SC ONE (10:20)
[2023-12-03] MEDS: VANCOMYCIN HCL 1,000 MG, VIAL MATE ADAPTER 1 EACH in D5W 250 ML IV SCH ×2 (11:14→20:09)
[2023-12-03] MEDS: DAPAGLIFLOZIN PROPANEDIOL 10MG TABLET (FARXIGA) PO SCH (11:14)
[2023-12-03] MEDS: EZETIMIBE 10MG TABLET (ZETIA) PO SCH (11:14)
[2023-12-03] MEDS ORDERED: METOPROLOL TART 50 MG TAB PO SCH (12:00)
[2023-12-03] MEDS ORDERED: DIGOXIN INJ 0.5 MG/2 ML AMP IV ONE (14:00)
[2023-12-03] MEDS: FAMOTIDINE 20 MG TAB PO SCH (20:09)
[2023-12-03] MEDS: CEFDINIR 300 MG CAP (OMNICEF) PO SCH (20:09)
[2023-12-03] MEDS: ATORVASTATIN 20 MG TAB PO SCH (20:09)
[2023-12-03] MEDS: ACETAMINOPHEN TAB 650MG DOSE (2X325MG) PO PRN (20:09)
[2023-12-04 01:31] VITALS: BP 140/87; TEMP 97.5; O2SAT 97
[2023-12-04 05:28] VITALS: BP 149/95; TEMP 97.8; O2SAT 97
[2023-12-04] MEDS: METOPROLOL TART 25 MG TABLET PO SCH ×3 (05:29→17:23)
[2023-12-04 08:00] LABS: BASO # 0.1 10^3/uL (0.0-0.2); BASO % 0.4 % (0.0-1.0); EOS # 0.1 10^3/uL (0.0-0.5); EOS % 0.8 % (0.0-3.0); HEMATOCRIT 44.5 % (42.0-52.0); LYMPH # 1.1 10^3/uL (1.5-5.0); LYMPH % 7.3 % (24.0-44.0); MEAN CORPUSCULAR HGB CONC 32.4 g/dl (32.0-36.5); MEAN CORPUSCULAR VOLUME 98.9 fl (80.0-96.0); MONO # 1.4 10^3/uL (0.0-0.8); MONO % 9.1 % (2.0-8.0); NEUTROPHILS # 12.2 10^3/uL (1.5-8.5); NEUTROPHILS % 81.5 % (36.0-66.0); PLATELET COUNT, AUTOMATED 475 10^3/uL (150-450); WHITE BLOOD COUNT 14.9 10^3/uL (4.0-10.0)
[2023-12-04 08:01] LABS: HEMOGLOBIN 14.4 g/dl (13.5-17.5)
[2023-12-04 08:07] LABS: INR 2.56; PROTHROMBIN TIME 26.6 SECONDS (12.5-14.5)
[2023-12-04 08:27] LABS: BLOOD UREA NITROGEN 10 MG/DL (9-23); CALCIUM LEVEL 9.4 MG/DL (8.3-10.6); CARBON DIOXIDE LEVEL 26 MMOL/L (20-31); CHLORIDE LEVEL 105 MMOL/L (98-107); CREATININE FOR GFR 0.71 MG/DL (0.70-1.30); GLOMERULAR FILTRATION RATE > 60.0 (>35); GLUCOSE, FASTING 210 MG/DL (74-106); POTASSIUM SERUM 4.2 MMOL/L (3.5-5.1); SODIUM LEVEL 136 MMOL/L (136-145)
[2023-12-04] MEDS: LEVEMIR (INSULIN DETEMIR) 1 UNITS/0.01ML SC SCH ×2 (08:29→12:16)
[2023-12-04 08:34] LABS: PROCALCITONIN 0.16 ng/ml
[2023-12-04] MEDS: ACETAMINOPHEN TAB 650MG DOSE (2X325MG) PO PRN ×2 (08:36→20:46)
[2023-12-04] MEDS: DAPAGLIFLOZIN PROPANEDIOL 10MG TABLET (FARXIGA) PO SCH (08:36)
[2023-12-04] MEDS: EZETIMIBE 10MG TABLET (ZETIA) PO SCH (08:36)
[2023-12-04] MEDS: CEFDINIR 300 MG CAP (OMNICEF) PO SCH ×2 (08:36→20:46)
[2023-12-04] MEDS: VANCOMYCIN HCL 500 MG in D5W MINI-BAG PLUS 100 ML IV SCH ×2 (08:37→20:46)
[2023-12-04] MEDS: INSULIN LISPRO (NovoLOG) PER UNIT SC SCH ×4 (08:37→20:23)
[2023-12-04 10:00] VITALS: BP 147/94; TEMP 97.5; O2SAT 93
[2023-12-04] MEDS: VANCOMYCIN HCL 750 MG, VIAL MATE ADAPTER 1 EACH in D5W 250 ML IV SCH ×2 (10:06→21:54)
[2023-12-04] MEDS ORDERED: FUROSEMIDE 40MG/4ML VIAL IV ONE (11:00)
[2023-12-04 14:00] VITALS: BP 121/77; TEMP 97.5; O2SAT 99
[2023-12-04] MEDS: WARFARIN SOD 3MG TAB PO SCH (17:19)
[2023-12-04 18:00] VITALS: BP 118/75; TEMP 97.7; O2SAT 94
[2023-12-04] MEDS: FAMOTIDINE 20 MG TAB PO SCH (20:46)
[2023-12-04] MEDS: ATORVASTATIN 20 MG TAB PO SCH (20:46)
[2023-12-04 22:00] VITALS: BP 149/87; TEMP 97.5; O2SAT 94
[2023-12-05] MEDS: METOPROLOL TART 25 MG TABLET PO SCH ×4 (00:14→17:29)
[2023-12-05 02:00] VITALS: BP 122/74; TEMP 97.4; O2SAT 96
[2023-12-05 05:47] LABS: BASO # 0.1 10^3/uL (0.0-0.2); BASO % 0.4 % (0.0-1.0); EOS # 0.2 10^3/uL (0.0-0.5); EOS % 1.3 % (0.0-3.0); HEMATOCRIT 43.7 % (42.0-52.0); LYMPH # 1.1 10^3/uL (1.5-5.0); LYMPH % 8.4 % (24.0-44.0); MEAN CORPUSCULAR HEMOGLOBIN 31.5 pg (27.0-33.0); MEAN CORPUSCULAR VOLUME 98.2 fl (80.0-96.0); MONO # 1.4 10^3/uL (0.0-0.8); MONO % 10.7 % (2.0-8.0); NEUTROPHILS # 10.4 10^3/uL (1.5-8.5); NEUTROPHILS % 77.6 % (36.0-66.0); PLATELET COUNT, AUTOMATED 420 10^3/uL (150-450); RED BLOOD COUNT 4.45 10^6/uL (4.30-6.10); WHITE BLOOD COUNT 13.4 10^3/uL (4.0-10.0)
[2023-12-05 05:53] VITALS: BP 148/92; TEMP 97.8; O2SAT 95
[2023-12-05 06:05] LABS: INR 2.88; PROTHROMBIN TIME 29.1 SECONDS (12.5-14.5)
[2023-12-05 06:15] LABS: DIGOXIN LEVEL 0.3 NG/ML (0.8-2.0)
[2023-12-05 06:16] LABS: BLOOD UREA NITROGEN 12 MG/DL (9-23); CALCIUM LEVEL 9.1 MG/DL (8.3-10.6); CARBON DIOXIDE LEVEL 24 MMOL/L (20-31); CHLORIDE LEVEL 105 MMOL/L (98-107); CREATININE FOR GFR 0.61 MG/DL (0.70-1.30); GLOMERULAR FILTRATION RATE > 60.0 (>35); GLUCOSE, FASTING 179 MG/DL (74-106); POTASSIUM SERUM 3.9 MMOL/L (3.5-5.1); SODIUM LEVEL 137 MMOL/L (136-145)
[2023-12-05] MEDS: EZETIMIBE 10MG TABLET (ZETIA) PO SCH (08:01)
[2023-12-05] MEDS: DAPAGLIFLOZIN PROPANEDIOL 10MG TABLET (FARXIGA) PO SCH (08:02)
[2023-12-05] MEDS: CEFDINIR 300 MG CAP (OMNICEF) PO SCH ×2 (08:02→20:59)
[2023-12-05] MEDS: LEVEMIR (INSULIN DETEMIR) 1 UNITS/0.01ML SC SCH (08:02)
[2023-12-05] MEDS: INSULIN LISPRO (NovoLOG) PER UNIT SC SCH ×5 (08:03→20:55)
[2023-12-05] MEDS: VANCOMYCIN HCL 500 MG in D5W MINI-BAG PLUS 100 ML IV SCH ×2 (09:04→20:56)
[2023-12-05 10:00] VITALS: BP 124/80; TEMP 97.5; O2SAT 99
[2023-12-05] MEDS: VANCOMYCIN HCL 750 MG, VIAL MATE ADAPTER 1 EACH in D5W 250 ML IV SCH ×2 (10:03→22:42)
[2023-12-05 14:00] VITALS: BP 120/79; TEMP 97.5; O2SAT 96
[2023-12-05] MEDS ORDERED: LEVEMIR (INSULIN DETEMIR) 1 UNITS/0.01ML SC ONE (16:45)
[2023-12-05] MEDS: WARFARIN SOD 3MG TAB PO SCH (17:30)
[2023-12-05 18:00] VITALS: BP 118/77; TEMP 97.7; O2SAT 95
[2023-12-05 20:46] VITALS: BP 126/78; TEMP 97.5; O2SAT 94
[2023-12-05] MEDS: ATORVASTATIN 20 MG TAB PO SCH (20:54)
[2023-12-05] MEDS: FAMOTIDINE 20 MG TAB PO SCH (20:55)
[2023-12-05] MEDS: ACETAMINOPHEN TAB 650MG DOSE (2X325MG) PO PRN (20:55)
[2023-12-06] MEDS: METOPROLOL TART 25 MG TABLET PO SCH ×5 (00:03→23:40)
[2023-12-06 01:52] VITALS: BP 150/93; TEMP 97.3; O2SAT 94
[2023-12-06 05:03] VITALS: BP 151/92; TEMP 97.3; O2SAT 95
[2023-12-06 06:47] LABS: BASO # 0.1 10^3/uL (0.0-0.2); BASO % 0.5 % (0.0-1.0); EOS # 0.1 10^3/uL (0.0-0.5); EOS % 0.7 % (0.0-3.0); HEMATOCRIT 42.5 % (42.0-52.0); HEMOGLOBIN 13.9 g/dl (13.5-17.5); LYMPH # 1.3 10^3/uL (1.5-5.0); MEAN CORPUSCULAR HEMOGLOBIN 31.9 pg (27.0-33.0); MEAN CORPUSCULAR HGB CONC 32.7 g/dl (32.0-36.5); MEAN CORPUSCULAR VOLUME 97.5 fl (80.0-96.0); MONO # 1.1 10^3/uL (0.0-0.8); MONO % 7.6 % (2.0-8.0); NEUTROPHILS # 11.7 10^3/uL (1.5-8.5); NEUTROPHILS % 80.5 % (36.0-66.0); PLATELET COUNT, AUTOMATED 504 10^3/uL (150-450); RED BLOOD COUNT 4.36 10^6/uL (4.30-6.10); WHITE BLOOD COUNT 14.6 10^3/uL (4.0-10.0)
[2023-12-06 07:10] LABS: INR 3.04; PROTHROMBIN TIME 30.4 SECONDS (12.5-14.5)
[2023-12-06 07:13] LABS: BLOOD UREA NITROGEN 13 MG/DL (9-23); CALCIUM LEVEL 9.1 MG/DL (8.3-10.6); CARBON DIOXIDE LEVEL 26 MMOL/L (20-31); CHLORIDE LEVEL 105 MMOL/L (98-107); CREATININE FOR GFR 0.68 MG/DL (0.70-1.30); DIGOXIN LEVEL 0.3 NG/ML (0.8-2.0); GLOMERULAR FILTRATION RATE > 60.0 (>35); GLUCOSE, FASTING 186 MG/DL (74-106); POTASSIUM SERUM 4.2 MMOL/L (3.5-5.1); SODIUM LEVEL 138 MMOL/L (136-145)
[2023-12-06 07:35] LABS: VANCOMYCIN RANDOM 14.7 UG/ML
[2023-12-06] MEDS: DAPAGLIFLOZIN PROPANEDIOL 10MG TABLET (FARXIGA) PO SCH (09:13)
[2023-12-06] MEDS: VANCOMYCIN HCL 500 MG in D5W MINI-BAG PLUS 100 ML IV SCH ×2 (09:13→21:01)
[2023-12-06] MEDS: CEFDINIR 300 MG CAP (OMNICEF) PO SCH ×2 (09:13→21:00)
[2023-12-06] MEDS: EZETIMIBE 10MG TABLET (ZETIA) PO SCH (09:13)
[2023-12-06] MEDS: INSULIN LISPRO (NovoLOG) PER UNIT SC SCH ×7 (09:14→21:00)
[2023-12-06 10:00] VITALS: BP 101/59; TEMP 97.5; O2SAT 96
[2023-12-06] MEDS: VANCOMYCIN HCL 750 MG, VIAL MATE ADAPTER 1 EACH in D5W 250 ML IV SCH ×2 (10:30→22:24)
[2023-12-06] MEDS: ACETAMINOPHEN TAB 650MG DOSE (2X325MG) PO PRN (13:06)
[2023-12-06 14:00] VITALS: BP 110/72; TEMP 97.7; O2SAT 94
[2023-12-06] MEDS: WARFARIN SOD 3MG TAB PO SCH (17:00)
[2023-12-06 20:55] VITALS: BP 135/85; TEMP 97.8; O2SAT 96
[2023-12-06] MEDS: LEVEMIR (INSULIN DETEMIR) 1 UNITS/0.01ML SC SCH (21:00)
[2023-12-06] MEDS: FAMOTIDINE 20 MG TAB PO SCH (21:00)
[2023-12-06] MEDS: ATORVASTATIN 20 MG TAB PO SCH (21:01)
[2023-12-07] VITALS (9 sets, daily range): BP systolic 122–149; BP diastolic 76–92; TEMP 97.3–101.1; O2SAT 92–97
[2023-12-07] MEDS: ACETAMINOPHEN TAB 650MG DOSE (2X325MG) PO PRN ×2 (05:52→15:13)
[2023-12-07] MEDS: METOPROLOL TART 25 MG TABLET PO SCH ×4 (05:52→23:02)
[2023-12-07 06:44] LABS: BASO # 0.1 10^3/uL (0.0-0.2); BASO % 0.6 % (0.0-1.0); EOS # 0.1 10^3/uL (0.0-0.5); EOS % 0.5 % (0.0-3.0); HEMATOCRIT 42.6 % (42.0-52.0); HEMOGLOBIN 13.6 g/dl (13.5-17.5); LYMPH # 1.3 10^3/uL (1.5-5.0); LYMPH % 9.1 % (24.0-44.0); MEAN CORPUSCULAR HEMOGLOBIN 31.1 pg (27.0-33.0); MEAN CORPUSCULAR HGB CONC 31.9 g/dl (32.0-36.5); MEAN CORPUSCULAR VOLUME 97.3 fl (80.0-96.0); MONO # 1.4 10^3/uL (0.0-0.8); MONO % 9.6 % (2.0-8.0); NEUTROPHILS # 11.1 10^3/uL (1.5-8.5); NEUTROPHILS % 78.1 % (36.0-66.0); PLATELET COUNT, AUTOMATED 495 10^3/uL (150-450); RED BLOOD COUNT 4.38 10^6/uL (4.30-6.10); WHITE BLOOD COUNT 14.2 10^3/uL (4.0-10.0)
[2023-12-07 06:53] LABS: INR 2.83; PROTHROMBIN TIME 28.7 SECONDS (12.5-14.5)
[2023-12-07 07:03] LABS: BLOOD UREA NITROGEN 13 MG/DL (9-23); CALCIUM LEVEL 9.1 MG/DL (8.3-10.6); CARBON DIOXIDE LEVEL 24 MMOL/L (20-31); CHLORIDE LEVEL 103 MMOL/L (98-107); CREATININE FOR GFR 0.68 MG/DL (0.70-1.30); DIGOXIN LEVEL 0.2 NG/ML (0.8-2.0); GLOMERULAR FILTRATION RATE > 60.0 (>35); GLUCOSE, FASTING 192 MG/DL (74-106); POTASSIUM SERUM 3.9 MMOL/L (3.5-5.1); SODIUM LEVEL 134 MMOL/L (136-145)
[2023-12-07] MEDS ORDERED: KETOROLAC 30 MG/ML 1ML VIAL IV ONE (07:10)
[2023-12-07] MEDS: DAPAGLIFLOZIN PROPANEDIOL 10MG TABLET (FARXIGA) PO SCH (09:31)
[2023-12-07] MEDS: EZETIMIBE 10MG TABLET (ZETIA) PO SCH (09:31)
[2023-12-07] MEDS: CEFDINIR 300 MG CAP (OMNICEF) PO SCH ×2 (09:31→21:45)
[2023-12-07] MEDS: VANCOMYCIN HCL 500 MG in D5W MINI-BAG PLUS 100 ML IV SCH ×2 (09:33→21:45)
[2023-12-07] MEDS: INSULIN LISPRO (NovoLOG) PER UNIT SC SCH ×7 (09:35→21:00)
[2023-12-07] MEDS: VANCOMYCIN HCL 750 MG, VIAL MATE ADAPTER 1 EACH in D5W 250 ML IV SCH ×2 (12:00→23:03)
[2023-12-07] MEDS: WARFARIN SOD 3MG TAB PO SCH (19:07)
[2023-12-07] MEDS: LEVEMIR (INSULIN DETEMIR) 1 UNITS/0.01ML SC SCH (21:44)
[2023-12-07] MEDS: ATORVASTATIN 20 MG TAB PO SCH (21:45)
[2023-12-07] MEDS: FAMOTIDINE 20 MG TAB PO SCH (21:46)
[2023-12-08] VITALS (7 sets, daily range): BP systolic 127–153; BP diastolic 68–92; TEMP 97.2–100.7; O2SAT 92–97
[2023-12-08] MEDS: ACETAMINOPHEN TAB 650MG DOSE (2X325MG) PO PRN ×2 (04:01→17:51)
[2023-12-08 06:15] LABS: BASO # 0.1 10^3/uL (0.0-0.2); BASO % 0.6 % (0.0-1.0); EOS # 0.1 10^3/uL (0.0-0.5); EOS % 0.5 % (0.0-3.0); HEMATOCRIT 40.5 % (42.0-52.0); HEMOGLOBIN 13.5 g/dl (13.5-17.5); LYMPH # 1.2 10^3/uL (1.5-5.0); LYMPH % 8.7 % (24.0-44.0); MEAN CORPUSCULAR HEMOGLOBIN 31.8 pg (27.0-33.0); MEAN CORPUSCULAR HGB CONC 33.3 g/dl (32.0-36.5); MEAN CORPUSCULAR VOLUME 95.5 fl (80.0-96.0); MONO # 1.6 10^3/uL (0.0-0.8); MONO % 11.1 % (2.0-8.0); NEUTROPHILS % 77.1 % (36.0-66.0); PLATELET COUNT, AUTOMATED 483 10^3/uL (150-450); RED BLOOD COUNT 4.24 10^6/uL (4.30-6.10); WHITE BLOOD COUNT 14.3 10^3/uL (4.0-10.0)
[2023-12-08] MEDS: METOPROLOL TART 25 MG TABLET PO SCH ×4 (06:24→23:29)
[2023-12-08 06:30] LABS: INR 2.65; PROTHROMBIN TIME 27.3 SECONDS (12.5-14.5)
[2023-12-08 06:46] LABS: BLOOD UREA NITROGEN 11 MG/DL (9-23); CALCIUM LEVEL 9.2 MG/DL (8.3-10.6); CARBON DIOXIDE LEVEL 25 MMOL/L (20-31); CHLORIDE LEVEL 104 MMOL/L (98-107); CREATININE FOR GFR 0.66 MG/DL (0.70-1.30); DIGOXIN LEVEL 0.2 NG/ML (0.8-2.0); GLOMERULAR FILTRATION RATE > 60.0 (>35); GLUCOSE, FASTING 156 MG/DL (74-106); POTASSIUM SERUM 3.7 MMOL/L (3.5-5.1); SODIUM LEVEL 136 MMOL/L (136-145)
[2023-12-08] MEDS: INSULIN LISPRO (NovoLOG) PER UNIT SC SCH ×7 (08:57→21:00)
[2023-12-08] MEDS: DAPAGLIFLOZIN PROPANEDIOL 10MG TABLET (FARXIGA) PO SCH (08:58)
[2023-12-08] MEDS: CEFDINIR 300 MG CAP (OMNICEF) PO SCH ×2 (08:58→20:27)
[2023-12-08] MEDS: EZETIMIBE 10MG TABLET (ZETIA) PO SCH (08:58)
[2023-12-08] MEDS: VANCOMYCIN HCL 500 MG in D5W MINI-BAG PLUS 100 ML IV SCH ×2 (08:58→20:27)
[2023-12-08] MEDS: VANCOMYCIN HCL 750 MG, VIAL MATE ADAPTER 1 EACH in D5W 250 ML IV SCH ×2 (11:13→21:41)
[2023-12-08 17:09] LABS: C REACTIVE PROTEIN QUANTITATIV 7.5 MG/DL (<1.0)
[2023-12-08 17:23] LABS: PROCALCITONIN 0.1 ng/ml
[2023-12-08] MEDS: WARFARIN SOD 3MG TAB PO SCH (17:47)
[2023-12-08] MEDS: FAMOTIDINE 20 MG TAB PO SCH (20:27)
[2023-12-08] MEDS: ATORVASTATIN 20 MG TAB PO SCH (20:27)
[2023-12-08] MEDS: LEVEMIR (INSULIN DETEMIR) 1 UNITS/0.01ML SC SCH (21:00)
[2023-12-09] VITALS: BP 157/102; TEMP 97.3; O2SAT 98
[2023-12-09] MEDS: ACETAMINOPHEN TAB 650MG DOSE (2X325MG) PO PRN ×3 (00:25→19:24)
[2023-12-09] MEDS: METOPROLOL TART 25 MG TABLET PO SCH (05:30)
[2023-12-09 05:37] VITALS: BP 142/64; TEMP 97.5; O2SAT 97
[2023-12-09] MEDS ORDERED: MORPHINE 2 MG/ML 1ML VIAL IV ONE (06:50)
[2023-12-09 07:39] LABS: BASO # 0.1 10^3/uL (0.0-0.2); BASO % 0.4 % (0.0-1.0); EOS # 0.1 10^3/uL (0.0-0.5); EOS % 0.4 % (0.0-3.0); HEMATOCRIT 43.3 % (42.0-52.0); HEMOGLOBIN 14.1 g/dl (13.5-17.5); LYMPH # 1.3 10^3/uL (1.5-5.0); LYMPH % 7.9 % (24.0-44.0); MEAN CORPUSCULAR HEMOGLOBIN 31.8 pg (27.0-33.0); MEAN CORPUSCULAR HGB CONC 32.6 g/dl (32.0-36.5); MEAN CORPUSCULAR VOLUME 97.5 fl (80.0-96.0); MONO # 1.8 10^3/uL (0.0-0.8); MONO % 11.1 % (2.0-8.0); NEUTROPHILS # 12.4 10^3/uL (1.5-8.5); NEUTROPHILS % 78.4 % (36.0-66.0); PLATELET COUNT, AUTOMATED 465 10^3/uL (150-450); RED BLOOD COUNT 4.44 10^6/uL (4.30-6.10); WHITE BLOOD COUNT 15.8 10^3/uL (4.0-10.0)
[2023-12-09 07:49] LABS: INR 2.75; PROTHROMBIN TIME 28.1 SECONDS (12.5-14.5)
[2023-12-09] MEDS: VANCOMYCIN HCL 500 MG in D5W MINI-BAG PLUS 100 ML IV SCH ×2 (08:02→10:11)
[2023-12-09] MEDS: CEFDINIR 300 MG CAP (OMNICEF) PO SCH ×2 (08:02→20:32)
[2023-12-09] MEDS: DAPAGLIFLOZIN PROPANEDIOL 10MG TABLET (FARXIGA) PO SCH (08:02)
[2023-12-09] MEDS: EZETIMIBE 10MG TABLET (ZETIA) PO SCH (08:02)
[2023-12-09] MEDS: LIDOCAINE 5% (LIDODERM) PATCH TD SCH (08:03)
[2023-12-09 08:06] LABS: BLOOD UREA NITROGEN 12 MG/DL (9-23); CALCIUM LEVEL 9.2 MG/DL (8.3-10.6); CARBON DIOXIDE LEVEL 25 MMOL/L (20-31); CHLORIDE LEVEL 104 MMOL/L (98-107); CREATININE FOR GFR 0.65 MG/DL (0.70-1.30); GLOMERULAR FILTRATION RATE > 60.0 (>35); GLUCOSE, FASTING 175 MG/DL (74-106); POTASSIUM SERUM 3.9 MMOL/L (3.5-5.1); SODIUM LEVEL 136 MMOL/L (136-145)
[2023-12-09 10:00] VITALS: BP 105/65; TEMP 97.5; O2SAT 94
[2023-12-09] MEDS: INSULIN LISPRO (NovoLOG) PER UNIT SC SCH ×7 (10:08→19:34)
[2023-12-09] MEDS: METOPROLOL SUCC *XL* 25MG TAB (TopROL *XL*) PO SCH ×2 (11:12→20:33)
[2023-12-09] MEDS: VANCOMYCIN HCL 750 MG, VIAL MATE ADAPTER 1 EACH in D5W 250 ML IV SCH (11:42)
[2023-12-09 14:00] VITALS: BP 124/75; TEMP 97.9; O2SAT 93
[2023-12-09] MEDS: WARFARIN SOD 3MG TAB PO SCH (17:06)
[2023-12-09] MEDS: FAMOTIDINE 20 MG TAB PO SCH (20:32)
[2023-12-09] MEDS: ATORVASTATIN 20 MG TAB PO SCH (20:32)
[2023-12-09] MEDS ORDERED: LEVEMIR (INSULIN DETEMIR) 1 UNITS/0.01ML SC SCH (21:00)
[2023-12-09 21:27] VITALS: BP 142/85; TEMP 98.2; O2SAT 95
[2023-12-10 05:52] LABS: INR 3.1; PROTHROMBIN TIME 30.8 SECONDS (12.5-14.5)
[2023-12-10 07:24] VITALS: BP 146/74; TEMP 97.7; O2SAT 96
[2023-12-10] MEDS: INSULIN LISPRO (NovoLOG) PER UNIT SC SCH ×4 (07:40→12:13)
[2023-12-10 07:42] VITALS: BP 151/98
[2023-12-10] MEDS: EZETIMIBE 10MG TABLET (ZETIA) PO SCH (07:42)
[2023-12-10] MEDS: DAPAGLIFLOZIN PROPANEDIOL 10MG TABLET (FARXIGA) PO SCH (07:42)
[2023-12-10] MEDS: METOPROLOL SUCC *XL* 25MG TAB (TopROL *XL*) PO SCH (07:42)
[2023-12-10] MEDS: LIDOCAINE 5% (LIDODERM) PATCH TD SCH (07:42)
[2023-12-10] MEDS: CEFDINIR 300 MG CAP (OMNICEF) PO SCH (07:46)
[2023-12-10] MEDS: ACETAMINOPHEN TAB 650MG DOSE (2X325MG) PO PRN (07:47)
[2023-12-10] MEDS ORDERED: JANT3TAB PO (09:56)
[2023-12-10] MEDS ORDERED: METO1TAB32 PO (09:56)
[2023-12-10] MEDS ORDERED: INSUDET SC (09:56)
[2023-12-10] MEDS ORDERED: CEFD1CAP9 PO (09:57)
[2023-12-10 10:00] VITALS: BP 127/91; TEMP 97.3; O2SAT 94
[2023-12-13] MEDS ORDERED: CEFD1CAP9 PO (16:52)
[2023-12-13] MEDS ORDERED: AMLO1TAB25 PO (16:52)
[2023-12-13] MEDS ORDERED: INSU100I48 SQ (16:52)
== END 2023-12-10 13:21 | disposition home health service (06) | DRG 300 ==
LOC: M ED 05:19 → M ED INP 09:49 → M MSPAV 14:02
PROVIDERS: ADMIT General Practice; ATTEND General Practice
DX: E11.52 Type 2 diabetes mellitus with diabetic peripheral angiopathy with gangrene (principal); M86.8X7 Other osteomyelitis, ankle and foot; L03.116 Cellulitis of left lower limb; I10 Essential (primary) hypertension; I48.91 Unspecified atrial fibrillation; E11.65 Type 2 diabetes mellitus with hyperglycemia; E11.621 Type 2 diabetes mellitus with foot ulcer; E11.69 Type 2 diabetes mellitus with other specified complication; L97.519 Non-pressure chronic ulcer of other part of right foot with unspecified severity; R26.89 Other abnormalities of gait and mobility; R29.6 Repeated falls; R53.81 Other malaise; L97.524 Non-pressure chronic ulcer of other part of left foot with necrosis of bone; Z87.891 Personal history of nicotine dependence; Z86.16 Personal history of COVID-19; Z79.4 Long term (current) use of insulin; Z79.01 Long term (current) use of anticoagulants; Z79.899 Other long term (current) drug therapy

== ENCOUNTER 2023-12-13 15:22 | Inpatient (IN) | payer MEDICARE ==
[~2023-12-13] VITALS: Ht 182.9 cm; Wt 80.2 kg
[~2023-12-13 15:22] MED LIST changes: +ACET325C5 PO; +ACET32TAB PO; +CEPH500C PO; +EZET10TA21 PO; +INSUDET SC; +ONETAB9 PO
[2023-12-13 15:50] VITALS: BP 159/91; TEMP 97.9; O2SAT 97
[2023-12-13] MEDS ORDERED: GLUCOSE 4GM CHEW TABLET PO PRN (16:35)
[2023-12-13] MEDS ORDERED: GLUCAGON INJ 1MG VIAL SC PRN (16:35)
[2023-12-13] MEDS ORDERED: DEXTROSE 50% 50ML SYRINGE IV PRN (16:35)
[2023-12-13] MEDS ORDERED: METO1TAB32 PO (16:52)
[2023-12-13] MEDS ORDERED: WARF-58 PO (16:52)
[2023-12-13] MEDS ORDERED: HOME MED LIST COMPLETE! XX SCH (16:55)
[2023-12-13] MEDS: INSULIN LISPRO (NovoLOG) PER UNIT SC SCH ×2 (17:30→21:00)
[2023-12-13 17:43] LABS: HEMOGLOBIN 12.6 g/dl (13.5-17.5); MEAN CORPUSCULAR HEMOGLOBIN 31.4 pg (27.0-33.0); MEAN CORPUSCULAR HGB CONC 32.3 g/dl (32.0-36.5); MEAN CORPUSCULAR VOLUME 97.3 fl (80.0-96.0); PLATELET COUNT, AUTOMATED 457 10^3/uL (150-450); RED BLOOD COUNT 4.01 10^6/uL (4.30-6.10); WHITE BLOOD COUNT 17.3 10^3/uL (4.0-10.0)
[2023-12-13 18:12] LABS: BLOOD UREA NITROGEN 19 MG/DL (9-23); CALCIUM LEVEL 10.1 MG/DL (8.3-10.6); CARBON DIOXIDE LEVEL 28 MMOL/L (20-31); CHLORIDE LEVEL 104 MMOL/L (98-107); CREATININE FOR GFR 0.77 MG/DL (0.70-1.30); GLOMERULAR FILTRATION RATE > 60.0 (>35); GLUCOSE, FASTING 102 MG/DL (74-106); POTASSIUM SERUM 3.9 MMOL/L (3.5-5.1); SODIUM LEVEL 138 MMOL/L (136-145)
[2023-12-13] MEDS: cefTRIAXone SOD 2 GM in D5W MINI-BAG PLUS 50 ML IV SCH (18:14)
[2023-12-13 18:35] LABS: INR 5.65
[2023-12-13 18:36] LABS: PROTHROMBIN TIME 48.9 SECONDS (12.5-14.5)
[2023-12-13] MEDS: ACETAMINOPHEN TAB 650MG DOSE (2X325MG) PO PRN (19:14)
[2023-12-13] MEDS ORDERED: WARFARIN SOD 3MG TAB PO SCH (21:00)
[2023-12-13] MEDS ORDERED: CEFDINIR 300 MG CAP (OMNICEF) PO SCH (21:00)
[2023-12-13 21:41] VITALS: BP 152/91; TEMP 98.8; O2SAT 93
[2023-12-13] MEDS: DOXYCYCLINE HYCLATE 100MG TABLET PO SCH (21:50)
[2023-12-13] MEDS: ATORVASTATIN 20 MG TAB PO SCH (21:50)
[2023-12-13] MEDS: EZETIMIBE 10MG TABLET (ZETIA) PO SCH (21:50)
[2023-12-13] MEDS: FAMOTIDINE 20 MG TAB PO SCH (21:50)
[2023-12-13] MEDS: METOPROLOL SUCC *XL* 25MG TAB (TopROL *XL*) PO SCH (21:50)
[2023-12-13] MEDS: TERAZOSIN 1 MG CAP PO SCH (21:51)
[2023-12-13] MEDS: LEVEMIR (INSULIN DETEMIR) 1 UNITS/0.01ML SC SCH (21:51)
[2023-12-13] MEDS: PERCOCET 5MG/325MG TAB PO ONE (22:45)
[2023-12-14 05:56] VITALS: BP 146/87; TEMP 97.3; O2SAT 96
[2023-12-14 06:07] LABS: HEMATOCRIT 38.4 % (42.0-52.0); HEMOGLOBIN 12.3 g/dl (13.5-17.5); MEAN CORPUSCULAR HEMOGLOBIN 31.5 pg (27.0-33.0); MEAN CORPUSCULAR VOLUME 98.5 fl (80.0-96.0); PLATELET COUNT, AUTOMATED 447 10^3/uL (150-450); WHITE BLOOD COUNT 13.8 10^3/uL (4.0-10.0)
[2023-12-14 06:17] LABS: PROTHROMBIN TIME 48.3 SECONDS (12.5-14.5)
[2023-12-14 06:29] LABS: BLOOD UREA NITROGEN 18 MG/DL (9-23); CALCIUM LEVEL 9.5 MG/DL (8.3-10.6); CARBON DIOXIDE LEVEL 26 MMOL/L (20-31); CHLORIDE LEVEL 104 MMOL/L (98-107); CREATININE FOR GFR 0.65 MG/DL (0.70-1.30); GLOMERULAR FILTRATION RATE > 60.0 (>35); GLUCOSE, FASTING 111 MG/DL (74-106); POTASSIUM SERUM 3.7 MMOL/L (3.5-5.1); SODIUM LEVEL 136 MMOL/L (136-145)
[2023-12-14 06:43] LABS: INR 5.56
[2023-12-14] MEDS: SENOKOT S TAB PO SCH (09:00)
[2023-12-14] MEDS: PERCOCET 5MG/325MG TAB PO PRN (11:39)
[2023-12-14 14:00] VITALS: BP 132/72; TEMP 97.9; O2SAT 97
[2023-12-14 21:30] VITALS: BP 128/78; TEMP 99; O2SAT 93
[2023-12-15 05:45] LABS: HEMATOCRIT 37.8 % (42.0-52.0); HEMOGLOBIN 12.1 g/dl (13.5-17.5); MEAN CORPUSCULAR HEMOGLOBIN 31.3 pg (27.0-33.0); MEAN CORPUSCULAR VOLUME 97.7 fl (80.0-96.0); PLATELET COUNT, AUTOMATED 413 10^3/uL (150-450); RED BLOOD COUNT 3.87 10^6/uL (4.30-6.10); WHITE BLOOD COUNT 15.5 10^3/uL (4.0-10.0)
[2023-12-15 05:55] VITALS: BP 127/77; TEMP 98.1; O2SAT 92
[2023-12-15 05:59] LABS: INR 4.49
[2023-12-15 06:04] LABS: BLOOD UREA NITROGEN 16 MG/DL (9-23); CARBON DIOXIDE LEVEL 24 MMOL/L (20-31); CHLORIDE LEVEL 105 MMOL/L (98-107); CREATININE FOR GFR 0.65 MG/DL (0.70-1.30); GLOMERULAR FILTRATION RATE > 60.0 (>35); GLUCOSE, FASTING 111 MG/DL (74-106); POTASSIUM SERUM 4.2 MMOL/L (3.5-5.1); SODIUM LEVEL 136 MMOL/L (136-145)
[2023-12-15] MEDS: HEPARIN SOD (PORCINE) 5000UNITS/ML 1ML VIAL/SYRINGE SQ SCH (09:04)
[2023-12-15 14:00] VITALS: BP 122/69; TEMP 98.1; O2SAT 92
[2023-12-15 21:57] VITALS: BP 145/77; TEMP 98.8; O2SAT 97
[2023-12-15 22:00] VITALS: BP 127/80; TEMP 98.1; O2SAT 94
[2023-12-16 06:00] VITALS: BP 132/84; TEMP 97.3; O2SAT 96
[2023-12-16 06:59] LABS: HEMATOCRIT 39.1 % (42.0-52.0); HEMOGLOBIN 12.7 g/dl (13.5-17.5); MEAN CORPUSCULAR HEMOGLOBIN 31.6 pg (27.0-33.0); MEAN CORPUSCULAR HGB CONC 32.5 g/dl (32.0-36.5); MEAN CORPUSCULAR VOLUME 97.3 fl (80.0-96.0); PLATELET COUNT, AUTOMATED 441 10^3/uL (150-450); RED BLOOD COUNT 4.02 10^6/uL (4.30-6.10); WHITE BLOOD COUNT 13.3 10^3/uL (4.0-10.0)
[2023-12-16 07:25] LABS: BLOOD UREA NITROGEN 13 MG/DL (9-23); CALCIUM LEVEL 9.1 MG/DL (8.3-10.6); CARBON DIOXIDE LEVEL 27 MMOL/L (20-31); CHLORIDE LEVEL 103 MMOL/L (98-107); CREATININE FOR GFR 0.75 MG/DL (0.70-1.30); GLOMERULAR FILTRATION RATE > 60.0 (>35); GLUCOSE, FASTING 129 MG/DL (74-106); POTASSIUM SERUM 4.2 MMOL/L (3.5-5.1); SODIUM LEVEL 136 MMOL/L (136-145)
[2023-12-16 08:30] VITALS: BP 122/70; TEMP 97
[2023-12-16 08:52] VITALS: BP 122/70
== END 2023-12-16 10:05 | disposition short-term general hospital (02) | DRG 300 ==
LOC: M MSPAV 15:22
PROVIDERS: ADMIT Student in an Organized Health Care Education/Training Program; ATTEND Internal Medicine
PROC: B246ZZZ Ultrasonography of Right and Left Heart (ICD-10-PCS; principal; 2023-12-14)
DX: E11.52 Type 2 diabetes mellitus with diabetic peripheral angiopathy with gangrene (principal); L03.115 Cellulitis of right lower limb; M86.8X7 Other osteomyelitis, ankle and foot; L03.116 Cellulitis of left lower limb; L97.529 Non-pressure chronic ulcer of other part of left foot with unspecified severity; L97.519 Non-pressure chronic ulcer of other part of right foot with unspecified severity; I10 Essential (primary) hypertension; E11.69 Type 2 diabetes mellitus with other specified complication; K21.9 Gastro-esophageal reflux disease without esophagitis; I48.91 Unspecified atrial fibrillation; Z79.4 Long term (current) use of insulin; Z79.899 Other long term (current) drug therapy; Z91.018 Allergy to other foods